=== PATIENT | male | born 1945 | race Caucasian/White ===

== ENCOUNTER → 2019-02-18 | Outpatient (CLI) | payer MEDICARE, SELFPAY ==
[2019-02-18 15:42] VITALS: BMI 37.5
[2019-02-18 17:09] LABS: International Normalized Ratio 2.9; Prothrombin Time (Protime)PT. 30.8 SECONDS (11.7-14.9)
== END | disposition home or self-care (01) ==
PROVIDERS: Family Provider Family Medicine; PCP Family Medicine; Referring Provider Internal Medicine Cardiovascular Disease; Visit Provider Internal Medicine Cardiovascular Disease
DX: I25.10 Atherosclerotic heart disease of native coronary artery without angina pectoris (principal)
CPT/HCPCS: 36415; 85610

== ENCOUNTER → 2019-04-28 | Outpatient (CLI) | payer MEDICARE, SELFPAY ==
[2019-02-18 15:42] VITALS: BMI 37.5
[2019-04-28 17:23] LABS: Prothrombin Time (Protime)PT. 38.1 SECONDS (11.7-14.9)
[2019-04-28 17:35] LABS: International Normalized Ratio 3.8
== END | disposition home or self-care (01) ==
LOC: BFHLAB 16:13
PROVIDERS: Family Provider Family Medicine; PCP Family Medicine; Visit Provider Internal Medicine Cardiovascular Disease
DX: I48.19 Other persistent atrial fibrillation (principal); Z79.01 Long term (current) use of anticoagulants
CPT/HCPCS: 36415; 85610

== ENCOUNTER 2019-05-16 15:46 | Outpatient (RCR) | payer MEDICARE, SELFPAY ==
[2019-02-18 15:42] VITALS: BMI 37.5
[2019-05-16 18:19] LABS: International Normalized Ratio 3.3; Prothrombin Time (Protime)PT. 33.6 SECONDS (11.7-14.9)
== END 2019-05-16 18:00 | disposition home or self-care (01) ==
LOC: LAB 15:46
PROVIDERS: Family Provider Family Medicine; PCP Family Medicine; Referring Provider Internal Medicine Cardiovascular Disease; Visit Provider Internal Medicine Cardiovascular Disease
DX: I48.11 Longstanding persistent atrial fibrillation (principal)
CPT/HCPCS: 36415; 85610

== ENCOUNTER 2020-07-06 20:21 | Inpatient (IN) | payer MEDICARE, SELFPAY ==
[2020-02-22 16:18] VITALS: BMI 39.3
[2020-07-06 20:22] VITALS: BP 150/98; PULSE 135; RESP 28; TEMP 36.8; O2SAT 88; BMI 40.4
--- NOTE | 2020-07-06 20:43 | RAD_ITS ---
HISTORY: cough, worsening dyspnea, chest discomfort EXAM: XR Chest 1 View: COMPARISON: August 21, 2016 FINDINGS: # of images incl. paperwork: 1 Multilobar airspace disease is more severe than the previous study or new. Filled left chest wall single-lead cardiac pacer persists Heart is not enlarged. Scoliosis with degenerative disc disease persists Pulmonary vascularity is indistinct. No effusions. RAD/Chest 1 View (Portable) IMPRESSION: Multifocal bilateral airspace disease right greater than left with right pleural thickening consistent with pneumonia. at 2210 Reported and signed by: Jac Leach MD Electronically Signed: aJc Leach MD at 22:09 EST Tel , Service support ,
--- NOTE | 2020-07-06 20:43 | EKG12_ITS ---
Test Reason : SOB Blood Pressure : / mmHG Vent. Rate : 137 BPM Atrial Rate : 127 BPM P-R Int : 000 ms QRS Dur : 076 ms QT Int : 242 ms P-R-T Axes : 000 021 013 degrees QTc Int : 365 ms Atrial fibrillation Low voltage QRS Abnormal ECG Confirmed by PATTI BRYANT, CHAR ([id number]), publications editor BONG DELGADO ([id number]) on 07/09/2020 9:43:47 AM Referred By: Concepcion Delgado Confirmed By:CHAR ARMSTRONG MD
--- NOTE | 2020-07-06 20:44 | ED.DCSUM_ITS ---
- ER Visit Summary Date of Service: 07/06/20 Chief Complaint: Shortness of breath History of Present Illness: The patient is a [address] Blanchard. He reports that his tested positive for COVID-19 and he is waiting on his test. States that he has had shortness of breath has been gradually worsening for the past week and is much worse today. He has a cough is productive very little sputum. He states he had a fever to 102.6 degrees and chills. He has chest pain that began yesterday. Symptomatic intermittent pain last approximately 30 seconds at a time. He has 5 out of 10 at worst and is pain- free currently. Is increased with exertion and decreased with rest. Patient reports that he has been on dexamethasone and has 1 day left of this. Physical Examination: Vitals: 98.3, 150/98, 135, 28, 88% on room air which is hypoxic. General: Well-nourished and well-developed. Head: Normocephalic atraumatic. Neck: Supple, no lymphadenopathy. No JVD. Nontender. Cardiovascular: Tachycardic regular rhythm. No murmurs. Respiratory: Mild respiratory distress. Clear to auscultation bilaterally. Abdominal: Soft, nontender, nondistended, normal bowel sounds. No guarding, rebound, or peritoneal signs. Back: Nontender. Extremities: Nontender, no edema. Skin: Normal color, no rash. Neurologic: Alert and oriented ?3. Cranial nerves II through XII are intact. Normal strength and sensation. Psych: Normal affect. Test Results: EKG is A. fib at [address] changes. CBC shows 7 neutrophils 89 lymphocytes 2. Chem-7 shows a BUN of 31, glucose 155, calcium of 8.2. LFTs show an albumin of 2.9. INR is 2.6. PTT is 27.8. Troponin is negative. D-dimer is 0.58 (negative when adjusted for age). CRP is 80.1. LDH is 242. Lactic acid is 1.5. Fibrinogen is 713. Chest x-ray is consistent with Covid. Clinical Impression(s) from Imaging Studies Chest X-Ray 07/06/20 20:43 IMPRESSION: Multifocal bilateral airspace disease right greater than left with right pleural thickening consistent with pneumonia. at 2210 Reported and signed by: Jac Leach MD Electronically Signed: Jac Leach MD at 22:09 EST Tel , Service support , Emergency Department Course and Treatment: Patient had an IV placed. Is given a 500 cc bolus of normal saline. He is given 20 mg of Cardizem IV. His heart rate has decreased to low 100s. The x-ray was read by the radiologist as pneumonia. His COVID-19 test was negative. In my opinion this is a false negative. However, the patient was given Rocephin and Zithromax IV. Treatment Plan: Patient was discussed with Dr. Delgado. He will be admitted to the hospital for further evaluation and treatment. Disposition: Admitted in improved condition. Impression: 1. Atrial fibrillation with RVR. 2. Hypoxia. 3. COVID-19 infection. 4. Coumadin coagulopathy. This note was generated with [employer] dictation software. It may contain incorrect words, spelling, and punctuation that were not noted in review of the chart prior to signing ED Disposition - Plan for ED Patient: Referrals: Rafiq Blanchard DO [Primary Care Provider] -
[2020-07-06 21:07] VITALS: O2SAT 88
[2020-07-06 21:14] LABS: Absolute Neutrophil Count 8.4 X10^3/uL (2.0-7.7); Basophil# 0.02 X10^3/uL; Basophil% 0.2 % (0-1); Eosinophil# 0.01 X10^3/uL; Eosinophils% 0.1 % (0-5); Hematocrit 40.8 % (40-54); Hemoglobin 13.2 g/dL (13.0-16.5); Lymphocyte % 2.1 % (19-41); Mean Corp Hgb Conc 32.4 g/dL (32-36); Mean Corpuscular Hgb 30.2 pg (27.0-32.0); Mean Corpuscular Volume 93.4 fL (80-94); Mean Platelet Vol. 9.6 fl (6.2-12.0); Monocyte# 0.82 X10^3/uL; Monocyte% 8.7 % (0-10); NRBC Flagged by Analyzer 0 % (0-5); Neutrophil # 8.37 X10^3/uL (2.7-7.7); Neutrophil % 88.5 % (47-70); POSITIVE DIFFERENTIAL YES; Platelet Count 216 K/mm3 (150-450); RBC Distribution Width CV 13.2 % (11.6-14.6); RBC Distribution Width SD 45.7 fl (35.1-43.9); Red Blood Count 4.37 M/mm3 (4.6-6.2); White Blood Count 9.5 K/mm3 (4.4-11.0)
[2020-07-06] MEDS: dilTIAZem 25 MG/5 ML Vial 20 MG IV BOLUS (21:14)
[2020-07-06 21:15] LABS: Differential Indicated SCAN CRITERIA MET
[2020-07-06 21:34] LABS: Lactic Acid 1.5 mmol/L (0.4-1.9)
[2020-07-06 21:38] LABS: ALB/GLOB Ratio 0.8 RATIO (0.9-2.4); AST(SGOT) 19 U/L (15-37); Alanine Aminotransfer ALT/SGPT 33 U/L (16-61); Albumin, Serum 2.9 g/dL (3.2-5.0); Alkaline Phosphatase 103 U/L (45-117); Anion Gap 4 (5-15); BUN 31 mg/dL (7-18); BUN/Creat Ratio 34.1 RATIO (10-20); CPK Total, Creatine Kinase 87 U/L (39-308); Calcium,Total 8.2 mg/dL (8.5-10.1); Chloride 105 mmol/L (98-107); Creatinine, Serum 0.91 mg/dL (0.70-1.30); EST Glomerular Filtration Rate 87 mL/min (>60); Est Glom Filt Rate - Afr Amer 105 mL/min (>60); Estimated Creatinine Clearance 70.99 ml/min; Globulin 3.6 g/dL (2.2-4.2); Glucose 155 mg/dL (74-106); LDH 242 U/L (87-241); Protein, Total 6.5 g/dL (6.4-8.2); Sodium Level 139 mmol/L (136-145)
[2020-07-06 21:40] LABS: Procalcitonin 0.27 ng/mL (0.00-0.09)
[2020-07-06 21:41] VITALS: BP 110/65; PULSE 104; RESP 28; O2SAT 96
[2020-07-06 21:41] LABS: Fibrinogen 713 mg/dl (203-444); International Normalized Ratio 2.6; Prothrombin Time (Protime)PT. 27.8 SECONDS (11.7-14.9)
[2020-07-06 21:43] LABS: Differential Comment SCANNED
[2020-07-06 21:47] LABS: D-Dimer Quantitative (DVT/PE) 0.58 FEU/ug/m (0.27-0.49)
[2020-07-06 22:09] VITALS: BP 116/68; PULSE 107; RESP 20; O2SAT 96
[2020-07-06] MEDS: Ceftriaxone 1 GM/50 ML BAG IV (22:53)
[2020-07-06 22:55] VITALS: BP 123/85; PULSE 116; RESP 28; TEMP 36.2; O2SAT 96
--- NOTE | 2020-07-06 22:57 | HP.PCM_ITS ---
Problem List (1) Essential hypertension Status: Chronic (2) Atherosclerotic heart disease of [place] coronary artery without angina pectoris Status: Chronic Qualifiers: [place] vs. transplanted heart: [place] heart Qualified Code(s): I25.10 - Atherosclerotic heart disease of [place] coronary artery without angina pectoris Comment: MILD (3) Paroxysmal ventricular tachycardia Status: Acute (4) Persistent atrial fibrillation Status: Chronic (5) detention (current) use of anticoagulants Status: Acute (6) COPD (chronic obstructive pulmonary disease) Status: Chronic Qualifiers: COPD type: unspecified COPD Qualified Code(s): J44.9 - Chronic obstructive pulmonary disease, unspecified (7) HLD (hyperlipidemia) Status: Chronic Qualifiers: Hyperlipidemia type: unspecified Qualified Code(s): E78.5 - Hyperlipidemia, unspecified History of Present Illness Date of Admission: 07/06/20 Chief Complaint: Fever, SOB - Thursday The patient is a 74 year old M has medical history of chronic atrial fibrillation, on Coumadin, status post pacemaker, hypertension, hyperlipidemia who comes in with complaints of shortness of breath, and fever. His tested positive for COVID-19 couple of weeks ago. He started having loss of smell loss of teeth that started 2 days prior to admission. He has been having progressive shortness of breath, fevers, chest pain. He stated a T-max of 102.6F as well as chills. His chest pain is worse with exertion, improved with rest. He was started on methylprednisolone by his primary care doctor. Vitals show temperature of 98.3F, heart rate 135, blood pressure 150/98, respi ratory 22, SPO2 was 88% on room air, and improved to 96% on 2 to 3 L of oxygen. His admitting blood work showed a BC count of 9.5, hemoglobin 13.2, platelet count 216, lymphopenia is present. INR 2.6, fibrinogen 713, D-dimer 0.58, BMP was unremarkable, lactic acid 1.5, LFTs unremarkable. LDH 242, troponin is negative, CRP 80.1, procalcitonin 0.27 Past Medical History Past Medical History (Chronic Problems): Chronic Problems (Last Reviewed 02/22/20 @ 16:19 by Jamilah Rice) Essential hypertension (Chronic) Atherosclerotic heart disease of [place] coronary artery without angina pectoris (Chronic) MILD Persistent atrial fibrillation (Chronic) Cardiac pacemaker in situ (Chronic ~01/2009) COPD (chronic obstructive pulmonary disease) (Chronic) Type 2 diabetes mellitus (Chronic) HLD (hyperlipidemia) (Chronic) Medical History: Medical History (Last Reviewed 02/22/20 @ 16:19 by Jamilah Rice) Essential hypertension (Chronic) I10 Sinus pause (Acute) I45.5 Atherosclerotic heart disease of [place] coronary artery without angina pectoris (Chronic) I25.10 MILD Paroxysmal ventricular tachycardia (Acute) I47.2 Persistent atrial fibrillation (Chronic) I48.1 Syncope and collapse (Acute) R55 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 (Acute) Z79.01 COPD (chronic obstructive pulmonary disease) (Chronic) J44.9 Type 2 diabetes mellitus (Chronic) E11.9 HLD (hyperlipidemia) (Chronic) E78.5 BPH (benign prostatic hyperplasia) N40.0 Emphysema of lung J43.9 History of cardioversion Z98.890 X 2 KATHARINA (obstructive sleep apnea) G47.33 Allergies atorvastatin [From Lipitor] Adverse Reaction (Severe, Verified 07/06/20 20:24) myalgia Home Medications: Ambulatory Orders Medication Instructions Recorded Pravastatin [Pravachol] 20 mg PO QHS 08/21/16 Warfarin Sodium [Coumadin] 9 mg PO DAILY 08/21/16 metoprolol succinate 100 mg 100 mg PO BID #180 tab 08/15/19 tablet,extended release 24 hr furosemide 20 mg tablet 20 mg PO DAILY PRN #30 tab 02/22/20 terazosin 10 mg capsule 10 mg PO BID #60 cap 06/07/20 amlodipine 2.5 mg tablet 2.5 mg PO DAILY #30 tab 06/26/20 Surgical History: Surgical History (Last Reviewed 02/22/20 @ 16:19 by Jamilah Rice) Cardiac pacemaker in situ (Chronic) Onset Date: ~01/2009 Z95.0 History of carpal tunnel surgery Z98.890 S/P right inguinal hernia repair Z98.890, Z87.19 07/17/2017 Surgical History: herniorrhaphy - Right inguinal, pacemaker implantation, - - This post carpal tunnel syndrome Psychiatric History: No pertinent psych hx Lives: Spouse/ Significant Other Smoking Status: Never smoker Tobacco Use: Non-smoker Alcohol: None Drugs: None - *Family History Maternal Family History: Family History (Last Reviewed 02/22/20 @ 16:19 by Jamilah Rice) Mother Diabetes Hypertension Father Colon cancer History Items: Diabetes, - - chf Paternal Family History: Family History (Last Reviewed 02/22/20 @ 16:19 by Jamilah Rice) Mother Diabetes Hypertension Father Colon cancer History Items: - - colon cancer Review of Systems Constitutional: Reports: Anorexia, Chills, Fever, Malaise, Weakness, Fatigue. Denies: Weight Change Eyes: Denies: Blurred vision, Cataracts, Conjunctivae Inflammation, Pain, Redness, Vision Change HEENT: Denies: Difficulty Hearing, Difficulty Swallowing, Head Aches, Hearing Changes, Sinus Congestion, Sinus Drainage Cardiovascular: Denies: Chest Pain, Claudication, Orthopnea, Palpitations Respiratory: Reports: Cough, Shortness of Breath, Shortness of breath at rest, Shortness of breath upon exertion, Sputum production. Denies: Hemoptysis Gastrointestinal: Denies: Abdominal Pain, Constipation, Hematemesis, Hematochezia, Nausea, Vomiting Genitourinary: Denies: Dysuria, Frequency, Incontinence, Nocturia Musculoskeletal: Denies: Arm Pain, Back Pain, Foot Pain, Joint Pain, Joint stiffness, Joint swelling, Joint Tenderness Skin: Denies: Rash, Wounds Neurological: Denies: Difficulty swallowing, Focal weakness, Numbness, Tingling Psychiatric: Denies: Anxiety, Depression, Homicidal Ideations, Suicidal Ideations Hematologic/ Lymphatic: Denies: Easy Bruising, Easy Bleeding VTE Information - Inpt Only VTE Present on Admission: No VTE Pharm Prophylaxis ordered?: Yes Patient Problems: Active and Suspected Problems (Last Reviewed 02/22/20 @ 16:19 by Jamilah Rice) Paroxysmal ventricular tachycardia (Acute) 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 (Acute) - Physical Exam Vitals/I&O's: Vital Signs Temp Pulse Resp BP Pulse Ox 98.3 F 107 H 20 H 116/68 96 07/06/20 20:22 07/06/20 22:09 07/06/20 22:09 07/06/20 22:09 07/06/20 22:09 Oxygen Flow Rate (L/min) 2 Oxygen Delivery Method Nasal Cannula Weight: 120.5 kg Body Mass Index (BMI) 40.4 Intake and Output for Last 24 Hours 07/04/20 07/05/20 07/06/20 23:59 23:59 23:59 Intake Total 500 / 500 Balance 500 / 500 General: Alert, Oriented x3, Cooperative, No apparent distress, - - 2 L of oxygen, obese HEENT: Atraumatic, PERRLA, EOMI, Normocephalic Oral: Moist Mucosa Neck: Supple Lungs: Diminished Cardiovascular: Regular rate, Regular Rhythm, Normal S1, Normal S2, No murmurs Abdomen: Bowel Sounds Present, Soft, Non Tender, Non-Distended, No Hepato- splenomegaly Extremities: No edema Skin: No rashes Musculoskeletal: No Tenderness to Palpation of Joints or Extremities Lymphatic: No Cervical, Supraclavicular, or Inguinal Adenopathy Neurological: Cranial nerves II-XII grossly intact, Neuro grossly intact Psych/Mental Status: Normal Affect, Appropriate Microbiology Past 72 Hours 07/06/20 21:00 Mucosa - Nose SARS-CoV-2 Antigen (Rapid) - Final Laboratory Results 07/06/20 21:00: WBC 9.5, RBC 4.37 L, Hgb 13.2, Hct 40.8, MCV 93.4, MCH 30.2, MCHC 32.4, RDW Std Deviation 45.7 H, RDW Coeff of [place] 13.2, Plt Count 216, MPV 9.6, Immature Gran % (Auto) 0.400, Neut % (Auto) 88.5 H, Lymph % (Auto) 2.1 L, [place] % (Auto) 8.7, Eos % (Auto) 0.1, Baso % (Auto) 0.2, Absolute Neuts (auto) 8.4 H, Absolute Lymphs (auto) 0.20 L, Nucleated RBC % 0, Differential Comment SCANNED 07/06/20 21:00: PT 27.8 H, INR 2.6, Fibrinogen 713 H, D-Dimer Quant (PE/DVT) 0.58 H* 07/06/20 21:00: Sodium 139, Potassium 4.0, Chloride 105, Carbon Dioxide 30.0, Anion Gap 4 L, BUN 31 H, Creatinine 0.91, Estim Creat Clear Calc 70.99, Est GFR (MDRD) Af Amer 105, Est GFR (MDRD) Non-Af 87, BUN/Creatinine Ratio 34.1 H, Glucose 155 H, Calcium 8.2 L, Total Bilirubin 0.70, AST 19, ALT 33, Alkaline Phosphatase 103, Lactate Dehydrogenase 242 H, Total Creatine Kinase 87, Troponin I < 0.015, C-React Prot Ext Range 80.10 H, Total Protein 6.5, Albumin 2.9 L, Globulin 3.6, Albumin/Globulin Ratio 0.8 L 07/06/20 21:00: Lactic Acid 1.5 07/06/20 21:00: Procalcitonin 0.27 H Current Medications Azithromycin 500 mg/ Dextrose 255 mls @ 250 mls/hr IV X1 ONE Stop: 07/06/20 23:39 Ceftriaxone Sodium (Rocephin) 1 gm in 50 mls @ 100 mls/hr IV X1 ONE Stop: 07/06/20 23:07 Last Admin: 07/06/20 22:53 Dose: 100 mls/hr Documented by: Assessment/Plan All Active Problems (Last Reviewed 02/22/20 @ 16:19 by Jamilah Rice) Sinus pause (Acute) Paroxysmal ventricular tachycardia (Acute) Syncope and collapse (Acute) 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 Acute hypoxic respiratory insufficiency secondary to acute COVID-19 pneumonia Admitting SPO2 was 88% on room air, improved to 96% on 2 L Continue with breathing treatments, po steroids, encourage use of incentive spirometer. Wean off oxygen for SPO2 more than 94% 2. Acute COVID-19 pneumonia with hypoxia Continue on Decadron, start remdesivir, ID consult 3. A. fib with RVR, patient with chronic atrial fibrillation INR is therapeutic at 2.6 Continue on Cardizem drip, warfarin, resume home metoprolol Cardiology consult 4. Status post pacemaker/hypertension/hyperlipidemia all remain stable Continue on pravastatin, Lasix, Terazosin 5. DVT prophylaxis?on warfarin 6. CODE STATUS: DNR CCA I discussed and explained in details the various types of CODE STATUS-full code, DNR CCA, DNR CC. Patient chose DNR CCA. He does not want to be aggressively resuscitated in the event of a cardiopulmonary arrest. Time spent discussing CODE STATUS 18 minutes Inpatient E&M: 20578 Init Hosp L3 Procedures: 50836 Advncd Care Plan 30 Min
[2020-07-06] MEDS: dilTIAZem 25 MG/5 ML Vial IV BOLUS (23:29)
[2020-07-06 23:41] VITALS: BP 122/77; PULSE 89; RESP 28; O2SAT 93
[2020-07-07] VITALS (42 sets, daily range): BP systolic 99–150; BP diastolic 61–89; PULSE 73–115; RESP 18–30; TEMP 36.6–37.8; O2SAT 90–97; BMI 39.6; BMI 39.7
--- NOTE | 2020-07-07 01:47 | ED.RN ---
this nurse called pt's and informed her of pt's room 215 and phone number to unit.
[2020-07-07] MEDS: 0.9% Normal Saline 1,000 ML 75 ML IV (02:18)
[2020-07-07 02:23] LABS: BNP,B-Type NATRIURETIC PEPTIDE 93.4 pg/mL (0-100)
[2020-07-07] MEDS: 0.9% Saline Lock 10 ML Syringe IV ×2 (05:45→11:07)
[2020-07-07 05:47] LABS: Absolute Lymphocyte Count 0.47 X10^3/uL (0.83-4.51); Absolute Neutrophil Count 9.8 X10^3/uL (2.0-7.7); Basophil# 0.02 X10^3/uL; Basophil% 0.2 % (0-1); Hematocrit 38.8 % (40-54); Hemoglobin 12.3 g/dL (13.0-16.5); Lymphocyte # 0.47 X10^3/ul (4.0); Lymphocyte % 4.2 % (19-41); Mean Corp Hgb Conc 31.7 g/dL (32-36); Mean Corpuscular Hgb 29.9 pg (27.0-32.0); Mean Corpuscular Volume 94.4 fL (80-94); Monocyte# 0.84 X10^3/uL; Monocyte% 7.5 % (0-10); NRBC Flagged by Analyzer 0 % (0-5); Neutrophil # 9.79 X10^3/uL (2.7-7.7); Neutrophil % 87.7 % (47-70); POSITIVE DIFFERENTIAL YES; Platelet Count 214 K/mm3 (150-450); RBC Distribution Width CV 13.4 % (11.6-14.6); RBC Distribution Width SD 46.5 fl (35.1-43.9); Red Blood Count 4.11 M/mm3 (4.6-6.2); White Blood Count 11.2 K/mm3 (4.4-11.0)
[2020-07-07 05:59] LABS: Differential Indicated SCAN CRITERIA MET
[2020-07-07 06:15] LABS: International Normalized Ratio 2.7; Prothrombin Time (Protime)PT. 27.9 SECONDS (11.7-14.9)
[2020-07-07 06:21] LABS: Differential Comment SCANNED
[2020-07-07] MEDS: INHALER, ASSIST DEVICES 1 EACH SPACER INHALATION (06:47)
[2020-07-07 07:06] LABS: ALB/GLOB Ratio 0.8 RATIO (0.9-2.4); AST(SGOT) 18 U/L (15-37); Alanine Aminotransfer ALT/SGPT 28 U/L (16-61); Albumin, Serum 2.6 g/dL (3.2-5.0); Alkaline Phosphatase 91 U/L (45-117); Anion Gap 4 (5-15); BUN 34 mg/dL (7-18); BUN/Creat Ratio 42.9 RATIO (10-20); Calcium,Total 7.7 mg/dL (8.5-10.1); Chloride 105 mmol/L (98-107); Creatinine, Serum 0.79 mg/dL (0.70-1.30); EST Glomerular Filtration Rate 102 mL/min (>60); Est Glom Filt Rate - Afr Amer 123 mL/min (>60); Globulin 3.4 g/dL (2.2-4.2); Glucose 110 mg/dL (74-106); Potassium 4.1 mmol/L (3.5-5.1); Sodium Level 139 mmol/L (136-145)
[2020-07-07] MEDS: dexAMETHasone 2 MG TABLET 6 MG PO (08:19)
[2020-07-07] MEDS: Doxazosin 4 MG Tablet 8 MG PO ×2 (08:19→21:41)
[2020-07-07] MEDS: amLODIPine 2.5 MG Tablet PO (08:20)
[2020-07-07] MEDS: Metoprolol(XL)Succ 100 MG Tablet PO ×2 (08:20→21:40)
[2020-07-07 11:12] LABS: T4 Free Direct 1.22 ng/dL (0.76-1.46)
[2020-07-07] MEDS: Digoxin 250 MCG/ML Ampul 500 MCG IV (11:16)
--- NOTE | 2020-07-07 11:49 | PCM.CONS.C ---
Problem List (1) Chronic atrial fibrillation with rapid ventricular response Status: Chronic Reason for Consult Date of Consultation: 07/07/20 History of Present Illness: The patient is a 74 year old M was admitted for shortness of breath. Patient has been having symptoms of shortness of breath for about a week. He was admitted because of that and also because of atrial fibrillation with fast ventricular rate. Patient has been treated for chronic atrial fibrillation for a long time on Coumadin. He Markie Vascor is 3. He is known to have hypertension, diabetes and hyperlipidemia. He had failed cardioversion. 7 years ago, because of syncopal episode and bradycardia he had a pacemaker put in. There was questionable history of paroxysmal ventricular tachycardia. He denies any history of myocardial infarct, chest pain or CVA. He cannot tolerate Lipitor because of muscle ache, however patient has been taking pravastatin with no difficulty. In a good day, patient can do anything he wants to do at his leisure pace with no difficulty. He is a non-smoker and nondrinker. [] Past Medical History Allergies/Adverse Reactions: Allergies atorvastatin [From Lipitor] Adverse Reaction (Severe, Verified 07/06/20 20:24) myalgia Home Medications: Ambulatory Orders Medication Instructions Recorded Pravastatin [Pravachol] 20 mg PO QHS 08/21/16 Warfarin Sodium [Coumadin] 9 mg PO DAILY 08/21/16 metoprolol succinate 100 mg 100 mg PO BID #180 tab 08/15/19 tablet,extended release 24 hr furosemide 20 mg tablet 20 mg PO DAILY PRN #30 tab 02/22/20 terazosin 10 mg capsule 10 mg PO BID #60 cap 06/07/20 amlodipine 2.5 mg tablet 2.5 mg PO DAILY #30 tab 06/26/20 Past Medical History (Chronic Problems): Chronic Problems (Last Reviewed 02/22/20 @ 16:19 by Jamilah Rice) Chronic atrial fibrillation with rapid ventricular response (Chronic) Essential hypertension (Chronic) Atherosclerotic heart disease of [place] coronary artery without angina pectoris (Chronic) MILD Persistent atrial fibrillation (Chronic) Cardiac pacemaker in situ (Chronic ~01/2009) COPD (chronic obstructive pulmonary disease) (Chronic) Type 2 diabetes mellitus (Chronic) HLD (hyperlipidemia) (Chronic) Surgical History: herniorrhaphy - Right inguinal, pacemaker implantation, - - This post carpal tunnel syndrome Psychiatric History: No pertinent psych hx - *Family History Maternal Family History: Family History (Last Reviewed 02/22/20 @ 16:19 by Jamilah Rice) Mother Diabetes Hypertension Father Colon cancer History Items: Diabetes, - - chf Paternal Family History: Family History (Last Reviewed 02/22/20 @ 16:19 by Jamilah Rice) Mother Diabetes Hypertension Father Colon cancer History Items: - - colon cancer Lives: Spouse/ Significant Other Smoking Status: Never smoker Tobacco Use: Non-smoker Alcohol: None Drugs: None Review of Systems - Review of Systems General: Reports: Fatigue HEENT: Denies: Vision Change, Blurred Vision Cardiovascular: Reports: Shortness of Breath, Palpitations. Denies: Chest Discomfort Respiratory: Reports: Shortness of Breath Gastrointestinal: Denies: Hematemesis, Hematochezia, Melena Genitourinary: Denies: Dysuria, Hematuria Muscoloskeletal: Reports: Muscle Weakness. Denies: Myalgias Neurological: Denies: Dizziness, Vertigo Psychiatric: Denies: Anxiety Objective: Vital Signs Temp Pulse Resp BP Pulse Ox 100.1 F H 112 H 18 125/84 H 91 07/07/20 10:00 07/07/20 11:16 07/07/20 10:00 07/07/20 11:16 07/07/20 10:45 Oxygen Flow Rate (L/min) 2 Oxygen Delivery Method Nasal Cannula Weight: 261 lb 14.546 oz Body Mass Index (BMI) 39.6 Intake and Output for Last 24 Hours 07/05/20 07/06/20 07/07/20 23:59 23:59 23:59 Intake Total 550 / 550 1213.50 / 1213.50 Output Total 250 / 250 Balance 550 / 550 963.50 / 963.50 General: Healthy Appearing, Awake, Alert, Oriented x 3, Cooperative, No Acute Distress HEENT: Atraumatic Cardiovascular: Irregular Rhythm - The viewed of the telemetry show patient heart rate between 101 120/min Psych/Mental Status: Appropriate, Normal Affect 07/06/20 21:00: WBC 9.5, RBC 4.37 L, Hgb 13.2, Hct 40.8, MCV 93.4, MCH 30.2, MCHC 32.4, Plt Count 216, MPV 9.6, Immature Gran % (Auto) 0.400, Neut % (Auto) 88.5 H, Lymph % (Auto) 2.1 L, [place] % (Auto) 8.7, Eos % (Auto) 0.1, Baso % (Auto) 0.2, Absolute Neuts (auto) 8.4 H, Nucleated RBC % 0 07/06/20 21:00: PT 27.8 H, INR 2.6, D-Dimer Quant (PE/DVT) 0.58 H* 07/06/20 21:00: Sodium 139, Potassium 4.0, Chloride 105, Carbon Dioxide 30.0, Anion Gap 4 L, BUN 31 H, Creatinine 0.91, Est GFR (MDRD) Af Amer 105, Est GFR (MDRD) Non-Af 87, BUN/Creatinine Ratio 34.1 H, Glucose 155 H, Calcium 8.2 L, Total Bilirubin 0.70, Troponin I < 0.015 07/06/20 21:00: Lactic Acid 1.5 07/07/20 02:04: B-Natriuretic Peptide 93.4 07/07/20 02:04: Troponin I < 0.015 07/07/20 05:00: PT 27.9 H, INR 2.7 07/07/20 05:00: Sodium 139, Potassium 4.1, Chloride 105, Carbon Dioxide 30.0, Anion Gap 4 L, BUN 34 H, Creatinine 0.79, Est GFR (MDRD) Af Amer 123, Est GFR (MDRD) Non-Af 102, BUN/Creatinine Ratio 42.9 H, Glucose 110 H, Calcium 7.7 L, Total Bilirubin 0.70 07/07/20 05:00: Troponin I < 0.015 07/07/20 05:18: WBC 11.2 H, RBC 4.11 L, Hgb 12.3 L, Hct 38.8 L, MCV 94.4 H, MCH 29.9, MCHC 31.7 L, Plt Count 214, MPV 10.0, Immature Gran % (Auto) 0.400, Neut % (Auto) 87.7 H, Lymph % (Auto) 4.2 L, [place] % (Auto) 7.5, Eos % (Auto) 0.0, Baso % (Auto) 0.2, Absolute Neuts (auto) 9.8 H, Nucleated RBC % 0 07/07/20 08:00: Troponin I < 0.015 Rhythm: EKG: ECHO: Stress Test: Cardiac Cath: PCI: CT Surgery: Holter monitor: EPS: PPM: CXR: Chest CT Scan: Assessment/Plan #1 chronic atrial fibrillation with fast ventricular rate. Patient has been stable for a long time according to him with ventricular rate in the 90s at home. The increase in ventricular rate is most likely secondary to Covid infection. His blood pressure has been reasonable 120 systolic range. I will try to give digoxin 0.5 mg IV to slow the ventricular rate down. Patient's is already on IV Cardizem and metoprolol by mouth. When stable patient should get repeat echocardiogram. TSH and free T4 has been ordered
--- NOTE | 2020-07-07 14:08 | CASEMGMT ---
Pt had indicated at admission that he has LW/POA forms but not able to bring in the forms at this time. EDITH Devi
--- NOTE | 2020-07-07 14:27 | CM.UR ---
Attempted to contact patient at this time time via phone to perform CM assessment. Desiree Ramires RN, CCM.
[2020-07-07] MEDS: dilTIAZem 60 MG Tablet PO (14:45)
--- NOTE | 2020-07-07 15:28 | NURSING ---
Unable to document vitals under titration on AUG. Vitals documented under vitals routine.
--- NOTE | 2020-07-07 16:54 | PCM.PROGNOTE ---
Patient Problems: Active and Suspected Problems (Last Reviewed 02/22/20 @ 16:19 by Jamilah Rice) Paroxysmal ventricular tachycardia (Acute) [facility] (current) use of anticoagulants (Acute) Subjective: Patient was seen and examined today, I talked with cardiology briefly about his care and cardiology was okay with placing him on oral Cardizem rather than a Cardizem drip. Patient has no complaints of any chest discomfort or chills or fever today. - Physical Exam Vitals/I&O's: Vital Signs Temp Pulse Resp BP Pulse Ox 98.1 F 79 20 H 126/74 H 95 07/07/20 16:05 07/07/20 16:25 07/07/20 16:05 07/07/20 16:25 07/07/20 16:25 Oxygen Flow Rate (L/min) 2 Oxygen Delivery Method Nasal Cannula Weight: 118.8 kg Body Mass Index (BMI) 39.6 Intake and Output for Last 24 Hours 07/05/20 07/06/20 07/07/20 23:59 23:59 23:59 Intake Total 550 / 550 1286.83 / 1286.83 Output Total 250 / 250 Balance 550 / 550 1036.83 / 1036.83 General: Alert, Oriented x3, Cooperative, No apparent distress, Well developed, Well nourished HEENT: Atraumatic, PERRLA, EOMI, Normocephalic Oral: Moist Mucosa Neck: Supple, No JVD, Trachea Midline, Thyroid Normal Size and Texture Lungs: Clear to auscultation, Normal air movement, No rhonchi, No wheeze, No rales Cardiovascular: No murmurs, PMI Normal, Irregular Rate, No rub noted Abdomen: Bowel Sounds Present, Soft, Non Tender, Non-Distended, Obese Extremities: No clubbing, No cyanosis, No edema, Capillary Refill Less than 3 Seconds Skin: No rashes, No breakdown Musculoskeletal: No Tenderness to Palpation of Joints or Extremities Neurological: Cranial nerves II-XII grossly intact, Neuro grossly intact, Sensory exam intact to light touch and pain, Coordination normal Psych/Mental Status: Normal Affect, Appropriate, Alert and oriented to time, place, person, mood and affect Microbiology Past 72 Hours 07/06/20 21:00 Mucosa - Nose SARS-CoV-2 Antigen (Rapid) - Final Laboratory Results 07/06/20 21:00: WBC 9.5, RBC 4.37 L, Hgb 13.2, Hct 40.8, MCV 93.4, MCH 30.2, MCHC 32.4, RDW Std Deviation 45.7 H, RDW Coeff of Dalila 13.2, Plt Count 216, MPV 9.6, Immature Gran % (Auto) 0.400, Neut % (Auto) 88.5 H, Lymph % (Auto) 2.1 L, Kerr % (Auto) 8.7, Eos % (Auto) 0.1, Baso % (Auto) 0.2, Absolute Neuts (auto) 8.4 H, Absolute Lymphs (auto) 0.20 L, Nucleated RBC % 0, Differential Comment SCANNED 07/06/20 21:00: PT 27.8 H, INR 2.6, Fibrinogen 713 H, D-Dimer Quant (PE/DVT) 0.58 H* 07/06/20 21:00: Sodium 139, Potassium 4.0, Chloride 105, Carbon Dioxide 30.0, Anion Gap 4 L, BUN 31 H, Creatinine 0.91, Estim Creat Clear Calc 70.99, Est GFR (MDRD) Af Amer 105, Est GFR (MDRD) Non-Af 87, BUN/Creatinine Ratio 34.1 H, Glucose 155 H, Calcium 8.2 L, Total Bilirubin 0.70, AST 19, ALT 33, Alkaline Phosphatase 103, Lactate Dehydrogenase 242 H, Total Creatine Kinase 87, Troponin I < 0.015, C-React Prot Ext Range 80.10 H, Total Protein 6.5, Albumin 2.9 L, Globulin 3.6, Albumin/Globulin Ratio 0.8 L 07/06/20 21:00: Lactic Acid 1.5 07/06/20 21:00: Procalcitonin 0.27 H 07/06/20 23:40: COVID-19 ([facility]) Detected 07/07/20 02:04: B-Natriuretic Peptide 93.4 07/07/20 02:04: Troponin I < 0.015 07/07/20 05:00: PT 27.9 H, INR 2.7 07/07/20 05:00: Sodium 139, Potassium 4.1, Chloride 105, Carbon Dioxide 30.0, Anion Gap 4 L, BUN 34 H, Creatinine 0.79, Estim Creat Clear Calc 64.60, Est GFR (MDRD) Af Amer 123, Est GFR (MDRD) Non-Af 102, BUN/Creatinine Ratio 42.9 H, Glucose 110 H, Calcium 7.7 L, Total Bilirubin 0.70, AST 18, ALT 28, Alkaline Phosphatase 91, Total Protein 6.0 L, Albumin 2.6 L, Globulin 3.4, Albumin/Globulin Ratio 0.8 L 07/07/20 05:00: Troponin I < 0.015 07/07/20 05:18: WBC 11.2 H, RBC 4.11 L, Hgb 12.3 L, Hct 38.8 L, MCV 94.4 H, MCH 29.9, MCHC 31.7 L, RDW Std Deviation 46.5 H, RDW Coeff of Dalila 13.4, Plt Count 214, MPV 10.0, Immature Gran % (Auto) 0.400, Neut % (Auto) 87.7 H, Lymph % (Auto) 4.2 L, Kerr % (Auto) 7.5, Eos % (Auto) 0.0, Baso % (Auto) 0.2, Absolute Neuts (auto) 9.8 H, Absolute Lymphs (auto) 0.47 L, Nucleated RBC % 0, Differential Comment SCANNED 07/07/20 08:00: Troponin I < 0.015 07/07/20 08:13: TSH 1.10, Free T4 1.22 Current Medications Acetaminophen (Acetaminophen 325 Mg Tablet) 650 mg PO Q6H PRN PRN PRN Reason: Pain Score 1-10/Temp > 100.7 F Al Hydroxide/Mg Hydroxide (Mag Hydrox/Al Hydrox/Simeth 30 Ml Udc) 30 ml PO Q6H PRN PRN PRN Reason: Gastric Burning Albuterol Sulfate (Albuterol Sulfate 18 Gm Inhaler (200 Puffs)) 2 puff IH Q4H PRN PRN PRN Reason: SOB &/OR WHEEZING Last Admin: 07/07/20 06:47 Dose: 2 puff Documented by: Dexamethasone (Dexamethasone 2 Mg Tablet) 6 mg PO DAILY [facility] Last Admin: 07/07/20 08:19 Dose: 6 mg Documented by: Diltiazem HCl (Diltiazem 60 Mg Tablet) 60 mg PO Q6 [facility] Last Admin: 07/07/20 14:45 Dose: 60 mg Documented by: Doxazosin Mesylate (Doxazosin 4 Mg Tablet) 8 mg PO BID [facility] Last Admin: 07/07/20 08:19 Dose: 8 mg Documented by: Furosemide (Furosemide 20 Mg Tablet) 20 mg PO DAILY PRN PRN PRN Reason: edema Remdesivir 100 mg/ Sodium (Chloride) 250 mls @ 125 mls/hr IV DAILY@2200 [facility] Stop: 07/10/20 23:59 Metoprolol Succinate (Metoprolol(Xl)Succ 100 Mg Tablet) 100 mg PO BID [facility] Last Admin: 07/07/20 08:20 Dose: 100 mg Documented by: Miscellaneous Information (Inhaler, Assist Devices 1 Each Spacer) 1 each INHALATION PRN PRN PRN Reason: WITH ALBUTEROL INHALER Last Admin: 07/07/20 06:47 Dose: 1 each Documented by: Pravastatin Sodium (Pravastatin 20 Mg Tablet) 20 mg PO QHS [facility] Sodium Chloride (0.9% Saline Lock 10 Ml Syringe) 10 - 40 ml IV UD PRN PRN Reason: SALINE FLUSH Last Admin: 07/07/20 11:07 Dose: 20 ml Documented by: Warfarin Sodium (Warfarin 3 Mg Tablet) 9 mg PO DAILY@2200 [facility] Medical Necessity - Tobacco Use Smoking Status: Never smoker Tobacco Use: Non-smoker Assessment/Plan All Active Problems (Last Reviewed 02/22/20 @ 16:19 by Jamilah Rice) Sinus pause (Acute) Paroxysmal ventricular tachycardia (Acute) Syncope and collapse (Acute) 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
[2020-07-07] MEDS: Pravastatin 20 MG Tablet PO (21:41)
[2020-07-08] VITALS (10 sets, daily range): BP systolic 124–156; BP diastolic 79–103; PULSE 70–90; RESP 18–20; TEMP 36.4–36.8; O2SAT 92–95
[2020-07-08] MEDS: dilTIAZem 60 MG Tablet PO ×3 (00:08→12:44)
[2020-07-08 07:03] LABS: International Normalized Ratio 2.9; Prothrombin Time (Protime)PT. 29.9 SECONDS (11.7-14.9)
[2020-07-08] MEDS: dexAMETHasone 2 MG TABLET 6 MG PO (08:03)
[2020-07-08] MEDS: Metoprolol(XL)Succ 100 MG Tablet PO ×2 (08:03→20:54)
[2020-07-08] MEDS: Doxazosin 4 MG Tablet 8 MG PO ×2 (08:03→20:53)
--- NOTE | 2020-07-08 11:17 | PCM.PN.CARD ---
Subjectve: He has been off IV Cardizem. Ventricular rate is reasonably controlled with p.o. Cardizem and metoprolol. INR is 2.9. Objective: Vital Signs Temp Pulse Resp BP Pulse Ox 97.6 F L 85 20 H 146/103 H 92 07/08/20 08:00 07/08/20 08:03 07/08/20 08:00 07/08/20 08:03 07/08/20 08:00 Oxygen Flow Rate (L/min) 2 Oxygen Delivery Method Nasal Cannula Weight: 260 lb 12.909 oz Body Mass Index (BMI) 39.6 Intake and Output for Last 24 Hours 07/06/20 07/07/20 07/08/20 23:59 23:59 23:59 Intake Total 550 / 550 1896.83 / 1896.83 Output Total 1075 / 1075 300 / 300 Balance 550 / 550 821.83 / 821.83 -300 / -300 General: Healthy Appearing, No Acute Distress Neck: Supple Cardiovascular: Irregular Rhythm - Review of the telemetry showed atrial fibrillation with reasonable rate Psych/Mental Status: Appropriate, Normal Affect 07/08/20 06:26: PT 29.9 H, INR 2.9 Rhythm: EKG: ECHO: Stress Test: Cardiac Cath: PCI: CT Surgery: Holter monitor: EPS: PPM: CXR: Chest CT Scan: Medical Necessity - Tobacco Use Smoking Status: Never smoker Tobacco Use: Non-smoker Assessment/Plan #1 chronic atrial fibrillation with fast ventricular rate now with better control rate. Patient has been stable for a long time according to him with ventricular rate in the 90s at home. The increase in ventricular rate is most likely secondary to Covid infection. Blood pressure still elevated probably secondary to use of steroid. Will add clonidine 0.1 mg p.o. twice daily
[2020-07-08] MEDS: cloNIDine HCl 0.1 MG Tablet PO ×2 (12:44→20:53)
--- NOTE | 2020-07-08 15:15 | PCM.PROGNOTE ---
Patient Problems: Active and Suspected Problems (Last Reviewed 02/22/20 @ 16:19 by Jamilah Rice) Paroxysmal ventricular tachycardia (Acute) intermediate (current) use of anticoagulants (Acute) Subjective: Patient was seen and examined today, he is on low-flow oxygen, his heart rate appears to be controlled-it is 90-100, I have elected to take the patient off telemetry at this time, I have converted his Cardizem to time-released Cardizem. Cardiology added on Catapres to his blood pressure medications today. Objective: General: Alert, Oriented x3, Cooperative, No apparent distress, Well developed, Well nourished HEENT: Atraumatic, PERRLA, EOMI, Normocephalic Oral: Moist Mucosa Neck: Supple, No JVD, Trachea Midline, Thyroid Normal Size and Texture Lungs: Clear to auscultation, Normal air movement, No rhonchi, No wheeze, No rales Cardiovascular: No murmurs, PMI Normal, Irregular Rate, No rub noted Abdomen: Bowel Sounds Present, Soft, Non Tender, Non-Distended, Obese Extremities: No clubbing, No cyanosis, No edema, Capillary Refill Less than 3 Seconds Skin: No rashes, No breakdown Musculoskeletal: No Tenderness to Palpation of Joints or Extremities Neurological: Cranial nerves II-XII grossly intact, Neuro grossly intact, Sensory exam intact to light touch and pain, Coordination normal Psych/Mental Status: Normal Affect, Appropriate, Alert and oriented to time, place, person, mood and affect - Physical Exam Vitals/I&O's: Vital Signs Temp Pulse Resp BP Pulse Ox 97.6 F L 90 20 H 146/103 H 92 07/08/20 08:00 07/08/20 11:00 07/08/20 08:00 07/08/20 08:03 07/08/20 08:00 Oxygen Flow Rate (L/min) 2 Oxygen Delivery Method Nasal Cannula Weight: 118.3 kg Body Mass Index (BMI) 39.6 Intake and Output for Last 24 Hours 07/06/20 07/07/20 07/08/20 23:59 23:59 23:59 Intake Total 550 / 550 1896.83 / 1896.83 360 / 360 Output Total 1075 / 1075 625 / 625 Balance 550 / 550 821.83 / 821.83 -265 / -265 Microbiology Past 72 Hours 07/06/20 21:00 Mucosa - Nose SARS-CoV-2 Antigen (Rapid) - Final Laboratory Results 07/08/20 06:26: PT 29.9 H, INR 2.9 Current Medications Acetaminophen (Acetaminophen 325 Mg Tablet) 650 mg PO Q6H PRN PRN PRN Reason: Pain Score 1-10/Temp > 100.7 F Al Hydroxide/Mg Hydroxide (Mag Hydrox/Al Hydrox/Simeth 30 Ml Udc) 30 ml PO Q6H PRN PRN PRN Reason: Gastric Burning Albuterol Sulfate (Albuterol Sulfate 18 Gm Inhaler (200 Puffs)) 2 puff IH Q4H PRN PRN PRN Reason: SOB &/OR WHEEZING Last Admin: 07/07/20 06:47 Dose: 2 puff Documented by: Clonidine (Clonidine Hcl 0.1 Mg Tablet) 0.1 mg PO BID [facility] Last Admin: 07/08/20 12:44 Dose: 0.1 mg Documented by: Dexamethasone (Dexamethasone 2 Mg Tablet) 6 mg PO DAILY [facility] Last Admin: 07/08/20 08:03 Dose: 6 mg Documented by: Diltiazem HCl (Diltiazem Cd 180 Mg Capsule) 180 mg PO Q12 [facility] Doxazosin Mesylate (Doxazosin 4 Mg Tablet) 8 mg PO BID [facility] Last Admin: 07/08/20 08:03 Dose: 8 mg Documented by: Furosemide (Furosemide 20 Mg Tablet) 20 mg PO DAILY PRN PRN PRN Reason: edema Remdesivir 100 mg/ Sodium (Chloride) 250 mls @ 125 mls/hr IV DAILY@2200 [facility] Stop: 07/10/20 23:59 Last Infusion: 07/07/20 23:41 Dose: Infused Documented by: Metoprolol Succinate (Metoprolol(Xl)Succ 100 Mg Tablet) 100 mg PO BID [facility] Last Admin: 07/08/20 08:03 Dose: 100 mg Documented by: Miscellaneous Information (Inhaler, Assist Devices 1 Each Spacer) 1 each INHALATION PRN PRN PRN Reason: WITH ALBUTEROL INHALER Last Admin: 07/07/20 06:47 Dose: 1 each Documented by: Pravastatin Sodium (Pravastatin 20 Mg Tablet) 20 mg PO QHS [facility] Last Admin: 07/07/20 21:41 Dose: 20 mg Documented by: Sodium Chloride (0.9% Saline Lock 10 Ml Syringe) 10 - 40 ml IV UD PRN PRN Reason: SALINE FLUSH Last Admin: 07/07/20 11:07 Dose: 20 ml Documented by: Warfarin Sodium (Warfarin 3 Mg Tablet) 9 mg PO DAILY@2200 [facility] Last Admin: 07/07/20 21:40 Dose: 9 mg Documented by: Medical Necessity - Tobacco Use Smoking Status: Never smoker Tobacco Use: Non-smoker Assessment/Plan All Active Problems (Last Reviewed 02/22/20 @ 16:19 by Jamilah Rice) Sinus pause (Acute) Paroxysmal ventricular tachycardia (Acute) Syncope and collapse (Acute) intermediate (current) use of anticoagulants (Acute) #1 COVID-19 pneumonia-patient will remain on remdesivir and dexamethasone #2 hypoxia secondary to #1-pulse ox will be monitored #3 chronic atrial fibrillation-I have placed the patient on Cardizem CD 181 twice a day, I have stopped his 60 mg immediate release Cardizem. #4 type 2 diabetes-blood sugars will be monitored #5 atherosclerotic heart disease #6 hyperlipidemia #7 essential hypertension #8 COPD-patient is on no home inhalers #9 obstructive sleep apnea-on CPAP Inpatient E&M: 28956 Subs Hosp L2
[2020-07-08] MEDS: dilTIAZem CD 180 MG Capsule PO (17:06)
[2020-07-08] MEDS: Pravastatin 20 MG Tablet PO (20:54)
[2020-07-09] VITALS (7 sets, daily range): BP systolic 111–162; BP diastolic 87–93; PULSE 57–91; RESP 17–20; TEMP 36.4–36.7; O2SAT 93–96
--- NOTE | 2020-07-09 04:45 | NURSING ---
0245 This RN with Silas Boone RN and Shanika Mar RN were at nurse's station when pt. came walking down the hallway fully dressed with his belongings bag. When asked what patient was doing and where he was going he responded I woke up and everything was off me so I thought my treatment was done and was D/C'd. Explained to patient we are still treating him and asked him to go back to his room and pt. complied. This RN in pt's room verified orientation and he was A&O x3. Pt. stated must have taken everything off in my sleep and said this happened before in the hospital. Placed oxygen back on patient as he was 84% on RA, obtained full set of VS, assisted with putting on gown and restarted IV. Also used albuterol inhaler for wheezes throughout. Bed alarm on and will continue to monitor.
--- NOTE | 2020-07-09 07:48 | PCM.PN.HOSP ---
Patient Problems: Active and Suspected Problems (Last Reviewed 02/22/20 @ 16:19 by Jamilah Rice) Paroxysmal ventricular tachycardia (Acute) halfway (current) use of anticoagulants (Acute) Reason for Visit: COVID-19 pneumonia Subjective: Patient is a 74-year-old gentleman admitted with shortness of breath diagnosed with acute COVID-19 pneumonia Objective: GENERAL: cooperative HEENT: Atraumatic; EYES; Anicteric, Normal Conjunctiva NECK; supple, normal thyroid, RESPIRATORY: Diminished to auscultation CARDIOVASCULAR: Irregular S1-S2 GI: soft, normoactive bowel sounds, : No Renal angle tenderness; EXTREMITIES: No edema, no clubbing, MUSCULOSKELETAL: no muscle waisting NEURO: Awake; no lateralizing signs. SKIN: No Rash PSYCH; Flat affect Vitals/I&O's: Vital Signs Temp Pulse Resp BP Pulse Ox 98.1 F 78 20 H 162/93 H 93 07/09/20 02:54 07/09/20 02:54 07/09/20 02:54 07/09/20 02:54 07/09/20 07:34 Oxygen Flow Rate (L/min) 2 Oxygen Delivery Method Nasal Cannula Weight: 117.4 kg Body Mass Index (BMI) 39.6 Intake and Output for Last 24 Hours 07/07/20 07/08/20 07/09/20 23:59 23:59 23:59 Intake Total 1896.83 / 1896.83 1090 / 1090 Output Total 1075 / 1075 1525 / 1525 350 / 350 Balance 821.83 / 821.83 -435 / -435 -350 / -350 Microbiology Past 72 Hours 07/06/20 21:20 Blood Culture (Wb) - Right Hand Blood Culture - Preliminary No growth in 48 hours. 07/06/20 21:00 Blood Culture (Wb) - Anticubital Left Blood Culture - Preliminary No growth in 48 hours. 07/09/20 05:15 Urine, Clean Catch Legionella Antigen - Final 07/09/20 05:15 Urine, Clean Catch Streptococcus pneumoniae Antigen (M - Final 07/06/20 21:00 Mucosa - Nose SARS-CoV-2 Antigen (Rapid) - Final Current Medications Acetaminophen (Acetaminophen 325 Mg Tablet) 650 mg PO Q6H PRN PRN PRN Reason: Pain Score 1-10/Temp > 100.7 F Al Hydroxide/Mg Hydroxide (Mag Hydrox/Al Hydrox/Simeth 30 Ml Udc) 30 ml PO Q6H PRN PRN PRN Reason: Gastric Burning Albuterol Sulfate (Albuterol Sulfate 18 Gm Inhaler (200 Puffs)) 2 puff IH Q4H PRN PRN PRN Reason: SOB &/OR WHEEZING Last Admin: 07/09/20 03:01 Dose: 2 puff Documented by: Clonidine (Clonidine Hcl 0.1 Mg Tablet) 0.1 mg PO BID [facility] Last Admin: 07/08/20 20:53 Dose: 0.1 mg Documented by: Dexamethasone (Dexamethasone 2 Mg Tablet) 6 mg PO DAILY [facility] Last Admin: 07/08/20 08:03 Dose: 6 mg Documented by: Diltiazem HCl (Diltiazem Cd 180 Mg Capsule) 180 mg PO Q12 [facility]PL[facility] Last Admin: 07/08/20 17:06 Dose: 180 mg Documented by: Doxazosin Mesylate (Doxazosin 4 Mg Tablet) 8 mg PO BID [facility] Last Admin: 07/08/20 20:53 Dose: 8 mg Documented by: Furosemide (Furosemide 20 Mg Tablet) 20 mg PO DAILY PRN PRN PRN Reason: edema Remdesivir 100 mg/ Sodium (Chloride) 250 mls @ 125 mls/hr IV DAILY@2200 [facility] Stop: 07/10/20 23:59 Last Infusion: 07/08/20 22:54 Dose: Infused Documented by: Metoprolol Succinate (Metoprolol(Xl)Succ 100 Mg Tablet) 100 mg PO BID [facility] Last Admin: 07/08/20 20:54 Dose: 100 mg Documented by: Miscellaneous Information (Inhaler, Assist Devices 1 Each Spacer) 1 each INHALATION PRN PRN PRN Reason: WITH ALBUTEROL INHALER Last Admin: 07/07/20 06:47 Dose: 1 each Documented by: Pravastatin Sodium (Pravastatin 20 Mg Tablet) 20 mg PO QHS [facility] Last Admin: 07/08/20 20:54 Dose: 20 mg Documented by: Sodium Chloride (0.9% Saline Lock 10 Ml Syringe) 10 - 40 ml IV UD PRN PRN Reason: SALINE FLUSH Last Admin: 07/07/20 11:07 Dose: 20 ml Documented by: Warfarin Sodium (Warfarin 3 Mg Tablet) 9 mg PO DAILY@2200 [facility] Last Admin: 07/08/20 20:55 Dose: 9 mg Documented by: STROKE Vital Signs/Narrative: Vital Signs Pulse Ox 07/09/20 07:34 93 Medical Necessity - Tobacco Use Smoking Status: Never smoker Tobacco Use: Non-smoker Assessment/Plan All Active Problems (Last Reviewed 02/22/20 @ 16:19 by Jamilah Rice) Sinus pause (Acute) Paroxysmal ventricular tachycardia (Acute) Syncope and collapse (Acute) halfway (current) use of anticoagulants (Acute) Patient is a 74-year-old gentleman admitted with shortness of breath diagnosed with acute COVID-19 pneumonia 1. Acute COVID-19 pneumonia ?Patient currently being treated with remdesivir and dexamethasone as well as supplemental oxygen 2. Acute hypoxic respiratory failure secondary to above ?Patient is on supplemental oxygen 3. Chronic A. fib ?Rate controlled on Cardizem 4. Diabetes mellitus type II -patient's oral hypoglycemics held. -Placed on long acting insulin, Accu-Cheks a.c. and at bedtime and covered with sliding scale insulin 5. Coronary artery disease ?Per history 6. Dyslipidemia -Patient is on statin therapy, continued at home dose 7. Hypertension - Blood pressure controlled, home medications continued with dose adjustment as needed 8. COPD ?Aerosol treatments as needed 9. Obstructive sleep apnea ?On CPAP at night 10. BPH ?Patient is on Terazosin at home 11. DVT prophylaxis ?On Coumadin with a therapeutic INR Advance planning; did discuss with the patient regarding advanced directives as well as CODE STATUS. Did explain the various scenarios involved ( FULL CODE, DNR CCA, DNR CCA with no intubation, and DNR CC and what each meant) patient elected full code with CPR and intubation if warranted. Order was placed. Time spent on discussion 18 minutes. Inpatient E&M: [id number] Subs Hosp L2 Procedures: 99007 Advncd Care Plan 30 Min
[2020-07-09] MEDS: dilTIAZem CD 180 MG Capsule PO ×2 (09:13→21:45)
[2020-07-09] MEDS: cloNIDine HCl 0.1 MG Tablet PO ×2 (09:14→21:33)
[2020-07-09] MEDS: Metoprolol(XL)Succ 100 MG Tablet PO ×2 (09:14→21:45)
[2020-07-09] MEDS: 0.9% Saline Lock 10 ML Syringe IV (09:14)
[2020-07-09] MEDS: Doxazosin 4 MG Tablet 8 MG PO ×2 (09:14→21:33)
[2020-07-09] MEDS: dexAMETHasone 2 MG TABLET 6 MG PO (09:14)
--- NOTE | 2020-07-09 09:44 | PCM.PN.CARD ---
Subjectve: The patient is awake and alert. He denies any ongoing sensation of rapid heart rates. There is been no issues with respect to ongoing chest discomfort. He states his breathing has improved overall. Objective: Vital Signs Temp Pulse Resp BP Pulse Ox 97.6 F L 91 20 H 137/88 H 94 07/09/20 09:00 07/09/20 09:14 07/09/20 09:00 07/09/20 09:00 07/09/20 09:00 Oxygen Flow Rate (L/min) 2 Oxygen Delivery Method Nasal Cannula Weight: 258 lb 13.163 oz Body Mass Index (BMI) 39.6 Intake and Output for Last 24 Hours 07/07/20 07/08/20 07/09/20 23:59 23:59 23:59 Intake Total 1896.83 / 1896.83 1090 / 1090 Output Total 1075 / 1075 1525 / 1525 350 / 350 Balance 821.83 / 821.83 -435 / -435 -350 / -350 General: Awake, Alert, Oriented x 3, Cooperative, No Acute Distress, Obese HEENT: Atraumatic, Normocephalic, PERRL, EOMI, Sclera Non Icteric Neck: Supple, Good ROM, No JVD Lungs: - - No obvious rales Cardiovascular: Irregular Rhythm, Normal S1, Normal S2 Abdomen: Bowel Sounds Present, Soft Extremities: No edema Neurological: No Focal Motor or Sensory Deficit Psych/Mental Status: Appropriate Rhythm: Atrial fibrillation Medical Necessity - Tobacco Use Smoking Status: Never smoker Tobacco Use: Non-smoker Assessment/Plan 1. Atrial fibrillation The patient has permanent atrial fibrillation. He remains on rate control therapy. He remains on anticoagulant therapy. At the moment he appears to be symptomatically and hemodynamically stable. Thus, at the present time, he will continue rate control therapy as deemed appropriate during the time of his COVID-19 diagnosis. He will continue his anticoagulation therapy. At the moment it does not appear he requires further cardiac diagnostic studies/therapeutic intervention. 2. Permanent pacemaker The patient has a permanent pacemaker. It has been evaluated in the past. It has been functioning appropriately. He will continue to be followed. 3. CAD The patient does not describe any ongoing symptoms related to his history of CAD. He will continue risk factor evaluation care as deemed appropriate. 4. Hyperlipidemia The patient should continue medical management as he is able. 5. Hypertension The patient's blood pressure will be followed with adjustment as needed. Overall, at the present time, the patient will continue cardiovascular medical therapy. It does not appear he requires further cardiac diagnostic studies/intervention at this time. He can be reassessed by cardiology as needed during his hospital stay. Otherwise he will continue to be followed as an outpatient. This note was generated using a voice recognition system and there may be incorrect words, spelling or punctuation that were not noted when reviewing the office note prior to saving.
--- NOTE | 2020-07-09 10:46 | CASEMGMT ---
RN CM Assessment Note Introduced role of CM to patient via phone to room, Patient is awake, alert and able to participate in assessment. Demographics, PCP verified. Patient states he is generally independent @ home, no DME and no assistance needed with ADL. Discussed oxygen testing prior to dc. requested I call his for DME company. Call to , explained possible need for home O2. did not have a preference as long as was [employer] with [employer]. Decision is for [facility] in [place]. Presentation: shortness of breath COVID-19 testin07/06/20 positive test @ [facility] - is positive for COVID-19 but recovering -daughters are bringing food/supplies to their home - and patient are aware of quarantine requirements Diagnosis: COVID-19 pneumonia PCP: Dr. Rafiq Blanchard Specialists: Dr. South Insurance: [employer] Medicare Preferred Pharmacy: [facility] Prescription Benefit: yes LNOK: Shasta Herrera Living Arrangements: Lives independently at home with his Tranportation: drives and drives DME: none. If oxygen is needed on dc, [facility] D[facility] providers for [employer] are: [facility] in [place], [place], [facility] in [place]-preferred. HHC: none SNF: none Patient DC Goals: Home DC Plan: Home. recommend home oxygen testing at rest and with ambulation on dc. CM available for discharge planning coordination. Contact CM for any concerns/needs that may arise. Yvonne GONZALEZ RN ACM
--- NOTE | 2020-07-09 15:25 | PCM.HP.ID ---
Problem List (1) COVID-19 Status: Acute Reason for Consult: covid Consulted by: Dr. Ford History of Present Illness: The patient is a 74 year old M presented with one week cough, dyspnea, change in taste/smell. 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 He saw PCP, started on steroids prior to admit for about 6 days. Came to ED, admitted on remdesivir and dex. Feeling better. Full ROS performed and neg except as noted above. 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 Persistent atrial fibrillation (Chronic) Cardiac pacemaker in situ (Chronic ~01/2009) COPD (chronic obstructive pulmonary disease) (Chronic) Type 2 diabetes mellitus (Chronic) HLD (hyperlipidemia) (Chronic) Allergies/Adverse Reactions: Allergies atorvastatin [From Lipitor] Adverse Reaction (Severe, Verified 07/06/20 20:24) myalgia Home Medications: Ambulatory Orders Medication Instructions Recorded Pravastatin [Pravachol] 20 mg PO QHS 08/21/16 Warfarin Sodium [Coumadin] 9 mg PO DAILY 08/21/16 metoprolol succinate 100 mg 100 mg PO BID #180 tab 08/15/19 tablet,extended release 24 hr furosemide 20 mg tablet 20 mg PO DAILY PRN #30 tab 02/22/20 terazosin 10 mg capsule 10 mg PO BID #60 cap 06/07/20 amlodipine 2.5 mg tablet 2.5 mg PO DAILY #30 tab 06/26/20 - Social History Tobacco Use: non-smoker Vital Signs Temp Pulse Resp BP Pulse Ox 97.7 F L 57 L 17 111/87 H 96 07/09/20 14:55 07/09/20 14:55 07/09/20 14:55 07/09/20 14:55 07/09/20 14:55 Oxygen Flow Rate (L/min) 2 Oxygen Delivery Method Nasal Cannula Weight: 117.4 kg Body Mass Index (BMI) 39.6 Microbiology Past 72 Hours 07/06/20 21:20 Blood Culture - Preliminary Blood Culture (Wb) - Right Hand No growth in 48 hours. 07/06/20 21:00 Blood Culture - Preliminary Blood Culture (Wb) - Anticubital Left No growth in 48 hours. 07/09/20 05:15 Legionella Antigen - Final Urine, Clean Catch Streptococcus pneumoniae Antigen (M - Final 07/06/20 21:00 SARS-CoV-2 Antigen (Rapid) - Final Mucosa - Nose - Other Studies Radiology: [] reviewed Other Studies: [] Route of nutrition/ use of supplements: [] Nutritional Intake: [] IV Site: [] Navas Catheter: [] - Physical Exam General: Alert, Oriented x3, Cooperative, No apparent distress HEENT: Atraumatic, PERRLA, EOMI Neck: Supple, No Nodes Lungs: Clear to auscultation, Diminished Cardiovascular: Regular rate, Regular Rhythm Abdomen: Soft, Non Tender, Non-Distended Extremities: No edema Skin: No rashes Musculoskeletal: No Tenderness to Palpation of Joints or Extremities Neurological: Cranial nerves II-XII grossly intact - Assessment/Plan Antibiotics: [] Assessment/Plan: [] Active and Suspected Problems (Last Reviewed 02/22/20 @ 16:19 by Jamilah Rice) Paroxysmal ventricular tachycardia (Acute) 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 Sx started about a week prior to admit. Feeling better. D-dimer mildly elevated at 0.6. with covid recently, recovered. Plan on 20 days total of quarantine. Thank you, will follow
--- NOTE | 2020-07-09 17:23 | PCS.PANDOC ---
PANDEMIC DOCUMENTATION INITIATED: Date: 07/07/20 Time: 0125
[2020-07-09] MEDS: Pravastatin 20 MG Tablet PO (21:33)
[2020-07-10 01:02] VITALS: BP 135/83; PULSE 85; RESP 18; TEMP 36.6; O2SAT 96
[2020-07-10 06:06] LABS: ALB/GLOB Ratio 0.8 RATIO (0.9-2.4); AST(SGOT) 17 U/L (15-37); Alanine Aminotransfer ALT/SGPT 38 U/L (16-61); Albumin, Serum 2.5 g/dL (3.2-5.0); Alkaline Phosphatase 83 U/L (45-117); Anion Gap 2 (5-15); BUN 37 mg/dL (7-18); BUN/Creat Ratio 57.5 RATIO (10-20); Calcium,Total 8.1 mg/dL (8.5-10.1); Chloride 106 mmol/L (98-107); Creatinine, Serum 0.64 mg/dL (0.70-1.30); EST Glomerular Filtration Rate 130 mL/min (>60); Est Glom Filt Rate - Afr Amer 157 mL/min (>60); Globulin 3.2 g/dL (2.2-4.2); Glucose 132 mg/dL (74-106); Potassium 4.7 mmol/L (3.5-5.1); Protein, Total 5.7 g/dL (6.4-8.2); Sodium Level 141 mmol/L (136-145)
--- NOTE | 2020-07-10 07:30 | DCINST_ITS ---
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) COPD (chronic obstructive pulmonary disease) (Chronic) HLD (hyperlipidemia) (Chronic) You will use the following diet at home:: No restrictions Your food should be the consistency of: Regular Discharge Activity: Return to Normal Activity, - - And to isolate for total of 21 days Allergies/Adverse Reactions: Allergies atorvastatin [From Lipitor] Adverse Reaction (Severe, Verified 07/06/20 20:24) myalgia Medications to take at Discharge Pravastatin [Pravachol] 20 mg PO QHS 08/21/16 Warfarin Sodium [Coumadin] 9 mg PO DAILY 08/21/16 metoprolol succinate 100 mg tablet,extended release 24 hr 100 mg PO BID #180 tab 08/15/19 furosemide 20 mg tablet 20 mg PO DAILY PRN #30 tab 02/22/20 terazosin 10 mg capsule 10 mg PO BID #60 cap 06/07/20 Acetaminophen [Tylenol Tablet] 650 mg PO Q6H PRN PRN tab 07/10/20 Dexamethasone [Decadron] 6 mg PO DAILY 6 Days #6 tab 07/10/20 Diltiazem CD [Cardizem CD] 180 mg PO Q12 #120 cap 07/10/20 The following prescriptions were given: Diltiazem CD [Cardizem CD] 180 mg PO Q12 #120 cap Transmission Status: Received by [id number] Dexamethasone [Decadron] 6 mg PO DAILY 6 Days #6 tab Transmission Status: Received by [id number] Primary Care Physician: Rafiq Blanchard DO [Primary Care Provider] - Please follow up with your Primary Care Physician in: In 3 to 4 weeks Test Results: Test results from this visit will be discussed in further detail at your follow- up appointment, if applicable. Proposed Discharge Date: 07/10/20
--- NOTE | 2020-07-10 07:30 | PCM.DC.SUM ---
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) Date of Admission: 07/06/20 Date of Discharge: 07/10/20 - Primary Discharge Diagnosis Acute Problems: Active Problems (Last Reviewed 02/22/20 @ 16:19 by Jamilah Rice) COVID-19 (Acute) Paroxysmal ventricular tachycardia (Acute) care home (current) use of anticoagulants (Acute) - Secondary Discharge Diagnosis Chronic Problems: Chronic Problems (Last Reviewed 02/22/20 @ 16:19 by Jamilah Rice) Chronic atrial fibrillation with rapid ventricular response (Chronic) Essential hypertension (Chronic) Atherosclerotic heart disease of [place] coronary artery without angina pectoris (Chronic) MILD Persistent atrial fibrillation (Chronic) Cardiac pacemaker in situ (Chronic ~01/2009) COPD (chronic obstructive pulmonary disease) (Chronic) Type 2 diabetes mellitus (Chronic) HLD (hyperlipidemia) (Chronic) Hospital Course and Treatment Imaging Results: Clinical Impression(s) from Imaging Studies Chest X-Ray 07/06/20 20:43 IMPRESSION: Multifocal bilateral airspace disease right greater than left with right pleural thickening consistent with pneumonia. at 2210 Reported and signed by: Jac Leach MD Electronically Signed: Jac Leach MD at 22:09 EST Tel , Service support , Operations: None Summary of Care Provided: Patient is a 74-year-old gentleman admitted with shortness of breath diagnosed with acute COVID-19 pneumonia 1. Acute COVID-19 pneumonia ?Patient currently being treated with remdesivir and dexamethasone as well as supplemental oxygen 2. Acute hypoxic respiratory failure secondary to above ?Patient is on supplemental oxygen -Patient was assessed for home oxygen on discharge he did qualify. He will need portability since he is active both at home as well as in the community 3. Chronic A. fib ?Rate controlled on Cardizem 4. Diabetes mellitus type II -patient's oral hypoglycemics held. -Placed on long acting insulin, Accu-Cheks a.c. and at bedtime and covered with sliding scale insulin 5. Coronary artery disease ?Per history 6. Dyslipidemia -Patient is on statin therapy, continued at home dose 7. Hypertension - Blood pressure controlled, home medications continued with dose adjustment as needed 8. COPD ?Aerosol treatments as needed 9. Obstructive sleep apnea ?On CPAP at night 10. BPH ?Patient is on Terazosin at home 11. DVT prophylaxis ?On Coumadin with a therapeutic INR Patient Problems: Active and Suspected Problems (Last Reviewed 02/22/20 @ 16:19 by Jamilah Rice) COVID-19 (Acute) Paroxysmal ventricular tachycardia (Acute) care home (current) use of anticoagulants (Acute) Objective: GENERAL: cooperative HEENT: Atraumatic; EYES; Anicteric, Normal Conjunctiva NECK; supple, normal thyroid, RESPIRATORY: Diminished to auscultation CARDIOVASCULAR: Irregular S1-S2 GI: soft, normoactive bowel sounds, : No Renal angle tenderness; EXTREMITIES: No edema, no clubbing, MUSCULOSKELETAL: no muscle waisting NEURO: Awake; no lateralizing signs. SKIN: No Rash - Physical Exam Vitals/I&O's: Vital Signs Temp Pulse Resp BP Pulse Ox 97.8 F 85 18 135/83 H 96 07/10/20 01:02 07/10/20 01:02 07/10/20 01:02 07/10/20 01:02 07/10/20 01:02 Oxygen Flow Rate (L/min) 2 Oxygen Delivery Method Nasal Cannula Weight: 118.6 kg Body Mass Index (BMI) 39.6 Intake and Output for Last 24 Hours 07/08/20 07/09/20 07/10/20 23:59 23:59 23:59 Intake Total 1090 / 1090 1140 / 1340 450 / 450 Output Total 1525 / 1525 1250 / 1650 1000 / 1000 Balance -435 / -435 -110 / -310 -550 / -550 Microbiology Past 72 Hours 07/06/20 21:20 Blood Culture (Wb) - Right Hand Blood Culture - Preliminary No growth in 48 hours. 07/06/20 21:00 Blood Culture (Wb) - Anticubital Left Blood Culture - Preliminary No growth in 48 hours. 07/09/20 05:15 Urine, Clean Catch Legionella Antigen - Final 07/09/20 05:15 Urine, Clean Catch Streptococcus pneumoniae Antigen (M - Final Laboratory Results 07/10/20 05:18: Sodium 141, Potassium 4.7, Chloride 106, Carbon Dioxide 33.0 H, Anion Gap 2 L, BUN 37 H, Creatinine 0.64 L, Estim Creat Clear Calc 64.60, Est GFR (MDRD) Af Amer 157, Est GFR (MDRD) Non-Af 130, BUN/Creatinine Ratio 57.5 H, Glucose 132 H, Calcium 8.1 L, Total Bilirubin 0.30, AST 17, ALT 38, Alkaline Phosphatase 83, Total Protein 5.7 L, Albumin 2.5 L, Globulin 3.2, Albumin/Globulin Ratio 0.8 L Current Medications Acetaminophen (Acetaminophen 325 Mg Tablet) 650 mg PO Q6H PRN PRN PRN Reason: Pain Score 1-10/Temp > 100.7 F Al Hydroxide/Mg Hydroxide (Mag Hydrox/Al Hydrox/Simeth 30 Ml Udc) 30 ml PO Q6H PRN PRN PRN Reason: Gastric Burning Albuterol Sulfate (Albuterol Sulfate 18 Gm Inhaler (200 Puffs)) 2 puff IH Q4H PRN PRN PRN Reason: SOB &/OR WHEEZING Last Admin: 07/09/20 03:01 Dose: 2 puff Documented by: Clonidine (Clonidine Hcl 0.1 Mg Tablet) 0.1 mg PO BID [facility] Last Admin: 07/09/20 21:33 Dose: 0.1 mg Documented by: Dexamethasone (Dexamethasone 2 Mg Tablet) 6 mg PO DAILY [facility] Stop: 07/16/20 10:01 Last Admin: 07/09/20 09:14 Dose: 6 mg Documented by: Diltiazem HCl (Diltiazem Cd 180 Mg Capsule) 180 mg PO Q12 [facility] Last Admin: 07/09/20 21:45 Dose: 180 mg Documented by: Doxazosin Mesylate (Doxazosin 4 Mg Tablet) 8 mg PO BID [facility] Last Admin: 07/09/20 21:33 Dose: 8 mg Documented by: Furosemide (Furosemide 20 Mg Tablet) 20 mg PO DAILY PRN PRN PRN Reason: edema Remdesivir 100 mg/ Sodium (Chloride) 250 mls @ 125 mls/hr IV DAILY@2200 [facility] Stop: 07/10/20 23:59 Last Infusion: 07/10/20 02:51 Dose: Infused Documented by: Metoprolol Succinate (Metoprolol(Xl)Succ 100 Mg Tablet) 100 mg PO BID [facility] Last Admin: 07/09/20 21:45 Dose: 100 mg Documented by: Miscellaneous Information (Inhaler, Assist Devices 1 Each Spacer) 1 each INHALATION PRN PRN PRN Reason: WITH ALBUTEROL INHALER Last Admin: 07/07/20 06:47 Dose: 1 each Documented by: Pravastatin Sodium (Pravastatin 20 Mg Tablet) 20 mg PO QHS [facility] Last Admin: 07/09/20 21:33 Dose: 20 mg Documented by: Sodium Chloride (0.9% Saline Lock 10 Ml Syringe) 10 - 40 ml IV UD PRN PRN Reason: SALINE FLUSH Last Admin: 07/09/20 09:14 Dose: 10 ml Documented by: Warfarin Sodium (Warfarin 3 Mg Tablet) 9 mg PO DAILY@2200 [facility] Last Admin: 07/09/20 21:32 Dose: 9 mg Documented by: Discharge Diet: No Restrictions Discharge Activity: Return to Normal Activity, - - And to isolate for total of 21 days Home Medications: Medications to take at Discharge Pravastatin [Pravachol] 20 mg PO QHS 08/21/16 Warfarin Sodium [Coumadin] 9 mg PO DAILY 08/21/16 metoprolol succinate 100 mg tablet,extended release 24 hr 100 mg PO BID #180 tab 08/15/19 furosemide 20 mg tablet 20 mg PO DAILY PRN #30 tab 02/22/20 terazosin 10 mg capsule 10 mg PO BID #60 cap 06/07/20 Acetaminophen [Tylenol Tablet] 650 mg PO Q6H PRN PRN tab 07/10/20 Dexamethasone [Decadron] 6 mg PO DAILY 6 Days #6 tab 07/10/20 Diltiazem CD [Cardizem CD] 180 mg PO Q12 #120 cap 07/10/20 Following Prescriptions Were Given to Patient: Diltiazem CD [Cardizem CD] 180 mg PO Q12 #120 cap Transmission Status: Received by [facility] Dexamethasone [Decadron] 6 mg PO DAILY 6 Days #6 tab Transmission Status: Received by [id number] Primary Care Physician: Rafiq Blanchard DO [Primary Care Provider] - Please follow up with your Primary Care Physician in: In 3 to 4 weeks Disposition: Home Minutes spent on discharge:: 45 Patient Condition:: Stable Medical Necessity - Tobacco Use Smoking Status: Never smoker Tobacco Use: Non-smoker Meaningful Use Info Meaningful Use Diagnoses (Choose all that apply): None applicable Inpatient E&M: 95935 Disch Hosp
[2020-07-10 09:18] VITALS: BP 137/85; PULSE 78; RESP 15; TEMP 36.6; O2SAT 2
[2020-07-10 09:21] VITALS: BP 137/85; PULSE 78
[2020-07-10] MEDS: Doxazosin 4 MG Tablet 8 MG PO (09:21)
[2020-07-10] MEDS: Metoprolol(XL)Succ 100 MG Tablet PO (09:21)
[2020-07-10] MEDS: cloNIDine HCl 0.1 MG Tablet PO (09:21)
[2020-07-10] MEDS: dilTIAZem CD 180 MG Capsule PO (09:22)
[2020-07-10] MEDS: dexAMETHasone 2 MG TABLET 6 MG PO (09:22)
[2020-07-10 09:29] VITALS: O2SAT 86; O2SAT 94; O2SAT 95
--- NOTE | 2020-07-10 11:07 | CASEMGMT ---
RN CM Note: pt did qualify for home oxygen. script signed by physician and clinicals faxed to [facility] @ . PH: . Call to [facility] to update on referral. They do not have a time for portability delivery. Yvonne SÁNCHEZN RN ACM
[2020-07-10 14:00] VITALS: BP 142/82; PULSE 88; RESP 17; TEMP 36.9; O2SAT 93
--- NOTE | 2020-07-10 14:22 | CHAPLAIN ---
Type of Pastoral Visit ___ Initial Visit ___ Follow-up Visit ___ On-call Visit ___ General Patient Visit ___ Spiritual Assessment ___ Family Conference ___ Bereavement ___ Rapid Response ___ Code Blue _x__ Other (describe below) Pastoral Care Referral From ___ Patient ___ Family ___ Nurse ___ Physician ___ Tawer ___ [employer] [place] Business Analyst _x__ Other (describe below) Sacrament/Intervention _x__ Active listening ___ Anointing ___ Rastafari ___ Bereavement ___ Communion ___ Neli exploration ___ ___ Life review ___ Prayer ___ Reconciliation ___ Sacrament of Sick ___ Supportive presence ___ Wedding ___ Other (describe below) Pastoral Comments patient answers phone call into isolation room; pt states he is doing well and is being discharged today; pt said no concerns and that all has gone well for him here
[2020-07-10 15:09] VITALS: O2SAT 93
--- NOTE | 2020-07-12 09:29 | CASEMGMT ---
SALOMON ASENCIO Discharge Follow-up Phone Call: JOSE ENRIQUE: Richelle Strata: 3 Call Date: 07/12/2020 Discharge Date: 07/10/2020 Time of Call: 919 Admitting Diagnosis: COVID pneumonia Discharge follow-up call placed to pt. Pt states he has been doing well and states it is just going to take time. Pt states he is wearing his O2, denies any difficulty with breathing. States he does not have a pulse ox to monitor his oxygen levels. Pt states he has been in contact with his PCP's office and has an appointment scheduled for follow-up. Pt states he has been able to isolate and his and two daughters provide him with what he needs. Pt states he did receive his medications and has been taking them as directed. Pt denies any questions or concerns at this time. Deisi Mcmillan RN CM
== END 2020-07-10 15:40 | disposition home or self-care (01) | DRG 177 ==
LOC: ED 21:08 → MS2 23:05
PROVIDERS: Internal Medicine Cardiovascular Disease; Internal Medicine Infectious Disease; Admitting Provider Internal Medicine; Emergency Provider Emergency Medicine; PCP Family Medicine; Referring Provider Internal Medicine; Visit Provider Internal Medicine
DX: U07.1 COVID-19 (principal); J12.82 Pneumonia due to coronavirus disease 2019; J96.01 Acute respiratory failure with hypoxia; I47.2 Ventricular tachycardia; J44.0 Chronic obstructive pulmonary disease with (acute) lower respiratory infection; I48.21 Permanent atrial fibrillation; Z79.01 Long term (current) use of anticoagulants; R79.1 Abnormal coagulation profile; T45.515A Adverse effect of anticoagulants, initial encounter; I10 Essential (primary) hypertension; I25.10 Atherosclerotic heart disease of native coronary artery without angina pectoris; E78.5 Hyperlipidemia, unspecified; Z95.0 Presence of cardiac pacemaker; N40.0 Benign prostatic hyperplasia without lower urinary tract symptoms; E11.9 Type 2 diabetes mellitus without complications; G47.33 Obstructive sleep apnea (adult) (pediatric); Z66 Do not resuscitate
CPT/HCPCS: 36415; 71045; 80053; 82550; 83605; 83615; 83880; 84145; 84439; 84443; 84484; 85025; 85379; 85384; 85610; 86140; 87040; 87426; 87449; 87635; 93005; 97802; 99251; 99285; J7030; J7050; A4216; G0463; U0002

== ENCOUNTER 2020-07-21 22:15 | Observation (INO) | payer MEDICARE, SELFPAY ==
[2020-07-07 02:21] VITALS: BMI 39.6
[2020-07-21 22:16] VITALS: BP 118/69; PULSE 86; RESP 15; TEMP 36.6; O2SAT 93; BMI 39.5
--- NOTE | 2020-07-21 22:46 | ED.DCSUM_ITS ---
History of Present Illness Chief Complaint: Abn Labs Informant: Patient Narrative: Patient recently diagnosed with Covid pneumonia approximately 2 to 3 weeks ago. He is on Coumadin for chronic atrial fibrillation. He received some oral steroids and has some inflammation to his mouth from them. He noticed tonight when he woke up he had some bleeding from his gums. It is mild in nature. He tried to switch it all out but it continued so he came in for further evaluation as he is on Coumadin. His last INR approximately 2 weeks ago was 2.9. Patient denies any injury to his mouth. 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 (3) Paroxysmal ventricular tachycardia Status: Acute (4) Sinus pause Status: Acute (5) Syncope and collapse Status: Acute (6) Atherosclerotic heart disease of [place] coronary artery without angina pectoris Status: Chronic Comment: MILD (7) COPD (chronic obstructive pulmonary disease) Status: Chronic (8) Cardiac pacemaker in situ Status: Chronic (9) Chronic atrial fibrillation with rapid ventricular response Status: Chronic (10) Essential hypertension Status: Chronic (11) HLD (hyperlipidemia) Status: Chronic (12) Persistent atrial fibrillation Status: Chronic (13) Type 2 diabetes mellitus Status: Chronic Past Medical History - Allergies and Home Meds Allergies/Adverse Reactions: Allergies atorvastatin [From Lipitor] Adverse Reaction (Severe, Verified 07/06/20 20:24) myalgia Primary Care Physician: Rafiq Blanchard DO [Primary Care Provider] - Prior records reviewed: Yes Past Medical History: - - See problem list Surgical History: herniorrhaphy - Right inguinal, pacemaker implantation, - - This post carpal tunnel syndrome Lives: With Family Smoking Status: Never smoker Alcohol: None Drugs: None - Family History Maternal Family History: Family History (Last Reviewed 02/22/20 @ 16:19 by Jamilah Rice) Mother Diabetes Hypertension Father Colon cancer Family History: Reports: Diabetes, - - chf Paternal Family History: Family History (Last Reviewed 02/22/20 @ 16:19 by Jamilah Rice) Mother Diabetes Hypertension Father Colon cancer Family History: Reports: - - colon cancer Review of Systems General: Denies: Chills, Fever, Sweats Eyes: Denies: Visual changes - bilaterally, Diplopia ENT: Denies: Rhinorrhea, Sore throat Cardiovascular: Denies: Chest pain, Palpitations Respiratory: Denies: Dyspnea, Cough, Dyspnea on exertion Gastrointestinal: Denies: Abdominal pain, Nausea, Vomiting, Diarrhea, Melena, Hematochezia Genitourinary: Denies: Dysuria, Hematuria, Frequency Musculoskeletal: Denies: Back pain, Extremity Pain Skin: Denies: Rash, Wounds Neurological: Denies: Headache, Weakness, Numbness Physical Exam Vital Signs/Narrative: Vital Signs Temp Pulse Resp BP Pulse Ox 07/21/20 22:16 97.8 F 86 15 118/69 93 General: Well nourished, Well developed, No Acute Distress Head: Normocephalic, Atraumatic Eyes: Perrl, EOMI ENT: Moist mucous membranes, No rhinorrhea, - - Mild dried blood on his gingiva diffusely. Neck: Supple, Nontender Cardiovascular: Regular rate, Regular rhythm, No murmurs Respiratory: No distress, CTA bilaterally, Chest nontender Abdomen: Soft, Nontender, Nondistended, Normal bowel sounds Rectal: Guaiac positive, - - Gross brown stool. Negative for: Nontender, Tenderness Back: Nontender, Normal Inspection Extremities: Nontender, No edema Skin: Normal color, No rash Neurological: Alert, Oriented x3, Cranial nerves II-XII grossly intact, Normal Strength, Normal Sensation Psychological: Normal affect, Normal Mood Diagnostic/Tx/Re-eval - Medical Decision Making INR checked in the emergency department. The patient will swish and swallow and spit out the dried blood. INR is 13.3. Patient chewed on ice chips and was able to slow the bleeding down almost to a stop. Hemoglobin is 11.7 chest slightly below was on discharge approximately 2 weeks ago. Guaiac showed gross brown stool with no bleeding. He is guaiac positive however microscopically. Patient given vitamin K IV and fresh frozen plasma due to the fact that he has bleeding not only from his gums but his GI tract. He remained stable. Vital signs are stable. His last colonoscopy was couple years ago. He has had 3 total. He has been told they are normal. I suspect he is just bleeding because of his supratherapeutic INR. Patient has almost slowed his gingival bleeding down to a stop with just ice chips. I do not feel he needs TXA at this time. Will be admitted - Critical Care Time Critical care time (excluding procedures): 30-74 minutes ED Disposition - Plan for ED Patient: Disposition: Acute Care Hospital [facility] Diagnosis: Supratherapeutic INR, Occult blood in stools, Gingival bleeding
[2020-07-21 23:22] LABS: Prothrombin Time (Protime)PT. 102.3 SECONDS (11.7-14.9)
[2020-07-21 23:23] LABS: International Normalized Ratio 13.3
[2020-07-22] VITALS (9 sets, daily range): BP systolic 105–126; BP diastolic 70–79; PULSE 72–105; RESP 15–24; TEMP 36.3–37.3; O2SAT 91–97; BMI 40.3
[2020-07-22 00:07] LABS: Absolute Neutrophil Count 7.9 X10^3/uL (2.0-7.7); Basophil# 0.01 X10^3/uL; Basophil% 0.1 % (0-1); Eosinophil# 0.11 X10^3/uL; Eosinophils% 1.1 % (0-5); Hematocrit 37.2 % (40-54); Hemoglobin 11.7 g/dL (13.0-16.5); Mean Corp Hgb Conc 31.5 g/dL (32-36); Mean Corpuscular Hgb 30.4 pg (27.0-32.0); Mean Corpuscular Volume 96.6 fL (80-94); Mean Platelet Vol. 10.1 fl (6.2-12.0); Monocyte# 1.31 X10^3/uL; Monocyte% 13.2 % (0-10); NRBC Flagged by Analyzer 0 % (0-5); Neutrophil # 7.94 X10^3/uL (2.7-7.7); Neutrophil % 80.1 % (47-70); POSITIVE DIFFERENTIAL YES; Platelet Count 199 K/mm3 (150-450); RBC Distribution Width CV 14.7 % (11.6-14.6); RBC Distribution Width SD 51.1 fl (35.1-43.9); Red Blood Count 3.85 M/mm3 (4.6-6.2); White Blood Count 9.9 K/mm3 (4.4-11.0)
[2020-07-22 00:09] LABS: Differential Indicated SCAN CRITERIA MET
[2020-07-22 00:35] LABS: Anion Gap 1 (5-15); BUN 33 mg/dL (7-18); BUN/Creat Ratio 38.6 RATIO (10-20); Calcium,Total 7.9 mg/dL (8.5-10.1); Chloride 107 mmol/L (98-107); Creatinine, Serum 0.86 mg/dL (0.70-1.30); EST Glomerular Filtration Rate 93 mL/min (>60); Est Glom Filt Rate - Afr Amer 113 mL/min (>60); Estimated Creatinine Clearance 75.12 ml/min; Glucose 132 mg/dL (74-106); Potassium 4.7 mmol/L (3.5-5.1); Sodium Level 144 mmol/L (136-145)
[2020-07-22 00:38] LABS: Differential Comment SCANNED
--- NOTE | 2020-07-22 01:53 | PCM.HP.STD ---
Problem List (1) Occult blood positive stool Status: Acute (2) Chronic atrial fibrillation with rapid ventricular response Status: Chronic (3) COVID-19 Status: Acute (4) Supratherapeutic INR Status: Acute (5) Occult blood in stools Status: Acute (6) Gingival bleeding Status: Acute (7) Essential hypertension Status: Chronic (8) Atherosclerotic heart disease of [place] coronary artery without angina pectoris Status: Chronic Qualifiers: [place] vs. transplanted heart: [place] heart Qualified Code(s): I25.10 - Atherosclerotic heart disease of [place] coronary artery without angina pectoris Comment: MILD (9) Persistent atrial fibrillation Status: Chronic (10) Cardiac pacemaker in situ Status: Chronic (11) halfway (current) use of anticoagulants Status: Chronic (12) COPD (chronic obstructive pulmonary disease) Status: Chronic Qualifiers: COPD type: unspecified COPD Qualified Code(s): J44.9 - Chronic obstructive pulmonary disease, unspecified (13) Type 2 diabetes mellitus Status: Chronic (14) HLD (hyperlipidemia) Status: Chronic Qualifiers: Hyperlipidemia type: unspecified Qualified Code(s): E78.5 - Hyperlipidemia, unspecified History of Present Illness Date of Admission: 07/22/20 Chief Complaint: Mouth bleeding The patient is a 74 year old M with a significant history of hypertension; COPD; paroxysmal A. fib; permanent pacemaker; and type 2 diabetes who presents to the emergency department with mouth bleeding. His symptoms started on the same day of presentation. Patient was concerned that his mouth bleeding might have been from using nystatin swish and swallow. Patient was recently diagnosed and treated for COVID-19 pneumonia. He was at admitted at our hospital for his COVID-19 pneumonia and was discharged on 07/10/2020. He was prescribed Decadron and home oxygen. He developed thrush which he thought might have been from the Decadron and subsequently was prescribed nystatin swish and swallow. His INR at the emergency department was elevated at 13.3. The plan was to discharge patient home with vitamin K. However patient called that patient has been having dark stools so further work-up should be done.Patient reports dark stools ever since he was discharged from the hospital. Rectal exam done by emergent department doctor showed that patient has brown stools. However his occult stool was positive. A decision was made to observe patient at hospital. 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) COPD (chronic obstructive pulmonary disease) (Chronic) Type 2 diabetes mellitus (Chronic) HLD (hyperlipidemia) (Chronic) Medical History: Medical History (Last Reviewed 02/22/20 @ 16:19 by Jamilah Rice) Essential hypertension (Chronic) I10 Sinus pause (Inactive) I45.5 Atherosclerotic heart disease of [place] coronary artery without angina pectoris (Chronic) I25.10 MILD Paroxysmal ventricular tachycardia (Inactive) I47.2 Persistent atrial fibrillation (Chronic) I48.1 Syncope and collapse (Inactive) R55 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 (Chronic) Z79.01 COPD (chronic obstructive pulmonary disease) (Chronic) J44.9 Type 2 diabetes mellitus (Chronic) E11.9 HLD (hyperlipidemia) (Chronic) E78.5 BPH (benign prostatic hyperplasia) N40.0 Emphysema of lung J43.9 History of cardioversion Z98.890 X 2 KATHARINA (obstructive sleep apnea) G47.33 Allergies atorvastatin [From Lipitor] Adverse Reaction (Severe, Verified 07/06/20 20:24) myalgia Home Medications: Ambulatory Orders Medication Instructions Recorded Pravastatin [Pravachol] 20 mg PO QHS 08/21/16 Warfarin Sodium [Coumadin] 9 mg PO DAILY 08/21/16 metoprolol succinate 100 mg 100 mg PO BID #180 tab 08/15/19 tablet,extended release 24 hr furosemide 20 mg tablet 20 mg PO DAILY PRN #30 tab 02/22/20 terazosin 10 mg capsule 10 mg PO BID #60 cap 06/07/20 Acetaminophen [Tylenol Tablet] 650 mg PO Q6H PRN PRN tab 07/10/20 Diltiazem CD [Cardizem CD] 180 mg PO Q12 #120 cap 07/10/20 Surgical History: Surgical History (Last Reviewed 02/22/20 @ 16:19 by Jamilah Rice) Cardiac pacemaker in situ (Chronic) Onset Date: ~01/2009 Z95.0 History of carpal tunnel surgery Z98.890 S/P right inguinal hernia repair Z98.890, Z87.19 07/17/2017 Surgical History: herniorrhaphy - Right inguinal, pacemaker implantation, - - This post carpal tunnel syndrome Psychiatric History: No pertinent psych hx Lives: With Family Smoking Status: Never smoker Alcohol: None Drugs: None - *Family History Maternal Family History: Family History (Last Reviewed 02/22/20 @ 16:19 by Jamilah Rice) Mother Diabetes Hypertension Father Colon cancer History Items: Diabetes, - - chf Paternal Family History: Family History (Last Reviewed 02/22/20 @ 16:19 by Jamilah Rice) Mother Diabetes Hypertension Father Colon cancer History Items: - - colon cancer Review of Systems Constitutional: Denies: Chills, Fever, Weight Change HEENT: Denies: Head Aches, Sinus Congestion, Sinus Drainage Cardiovascular: Denies: Chest Pain, Palpitations Respiratory: Denies: Cough, Shortness of breath at rest, Sputum production Gastrointestinal: Denies: Abdominal Pain, Nausea, Vomiting Genitourinary: Denies: Dysuria Musculoskeletal: Denies: Joint Pain, Joint Tenderness Skin: Denies: Rash, Wounds Neurological: Denies: Numbness, Tingling, Focal weakness Psychiatric: Denies: Anxiety, Depression, Homicidal Ideations, Suicidal Ideations Hematologic/ Lymphatic: Denies: Easy Bruising, Easy Bleeding VTE Information - Inpt Only VTE Present on Admission: No VTE Mechan Device Prophylaxis: None VTE Pharm Prophylaxis ordered?: No Reason prophylaxis not ordered:: Treatment Not Indicated - Patient is bleeding and with supra therapeutic INR Patient Problems: Active and Suspected Problems (Last Reviewed 02/22/20 @ 16:19 by Jamilah Rice) COVID-19 (Acute) Supratherapeutic INR (Acute) Occult blood in stools (Acute) Gingival bleeding (Acute) Occult blood positive stool (Acute) - Physical Exam Vitals/I&O's: Vital Signs Temp Pulse Resp BP Pulse Ox 97.8 F 86 15 118/69 93 07/21/20 22:16 07/21/20 22:16 07/21/20 22:16 07/21/20 22:16 07/21/20 22:16 Oxygen Delivery Method Room Air Weight: 117.934 kg Body Mass Index (BMI) 39.5 General: Alert, Oriented x3, Cooperative HEENT: Atraumatic, EOMI, Normocephalic Oral: - - Bleeding from [place] of mouth. Neck: Supple, No JVD, Negative Carotid Bruits Lungs: Clear to auscultation, Normal air movement Cardiovascular: Normal S1, Normal S2, No murmurs Abdomen: Bowel Sounds Present, Soft, Non Tender Extremities: Capillary Refill Less than 3 Seconds, Edema - Bilateral legs right worse than left Skin: No rashes, No breakdown, - - Erythema and scratches on right leg which patient attributes to scratching. Musculoskeletal: No Tenderness to Palpation of Joints or Extremities Neurological: Cranial nerves II-XII grossly intact Psych/Mental Status: Normal Affect, Appropriate Microbiology Past 72 Hours 07/22/20 00:25 Stool Stool Occult Blood (CARMEN) - Final Occult Blood Positive Laboratory Results 07/21/20 00:10: Sodium 144, Potassium 4.7, Chloride 107, Carbon Dioxide 36.0 H, Anion Gap 1 L, BUN 33 H, Creatinine 0.86, Estim Creat Clear Calc 75.12, Est GFR (MDRD) Af Amer 113, Est GFR (MDRD) Non-Af 93, BUN/Creatinine Ratio 38.6 H, Glucose 132 H, Calcium 7.9 L 07/21/20 22:50: PT 102.3 H, INR 13.3 H* 07/21/20 22:50: WBC 9.9, RBC 3.85 L, Hgb 11.7 L, Hct 37.2 L, MCV 96.6 H, MCH 30.4, MCHC 31.5 L, RDW Std Deviation 51.1 H, RDW Coeff of [place] 14.7 H, Plt Count 199, MPV 10.1, Immature Gran % (Auto) 0.500, Neut % (Auto) 80.1 H, Lymph % (Auto) 5.0 L, [place] % (Auto) 13.2 H, Eos % (Auto) 1.1, Baso % (Auto) 0.1, Absolute Neuts (auto) 7.9 H, Absolute Lymphs (auto) 0.50 L, Nucleated RBC % 0, Differential Comment SCANNED Assessment/Plan All Active Problems (Last Reviewed 02/22/20 @ 16:19 by Jamilah Rice) COVID-19 (Acute) Supratherapeutic INR (Acute) Occult blood in stools (Acute) Gingival bleeding (Acute) Occult blood positive stool (Acute) The patient is a 74 year old M with a significant history of hypertension; COPD; permanent pacemaker; paroxysmal A. fib; and type 2 diabetes who presents to the emergency department with mouth bleeding; dark stools; positive stool occult blood and with elevated INR. Supratherapeutic INR with mouth bleeding and positive occult stools. Patient report that he has had 3 colonoscopies with the last colonoscopy 2 years ago. All colonoscopies has been normal. Vitamin K and 2 units of fresh frozen plasma ordered at the emergency department. Emergent department doctor gave ice which appeared to temporarily improve mouth bleeding. Discussed emergent department doctor who ordered tranexamic acid for oral irrigation. We will trend H&H and repeat INR. N.p.o. except meds of sips and ice. Hold Lasix. Continue metoprolol; Cardizem and Terazosin: Parameters placed for blood pressures. Atrial fibrillation Cardizem and metoprolol continued. Coumadin held secondary therapeutic INR. Hypertension Blood pressure is stable in regard to his age. Metoprolol Cardizem continued. Trend blood pressure and adjust blood pressure medications. Recently diagnosed COVID-19 and COPD Patient is out of isolation at this time. On 2 L oxygen saturation is 93 to 94%. Mild wheezing. As needed albuterol ordered. Congestive heart failure. Stable Echocardiogram on 08/22 2016 showed ejection fraction of 65%. Moderate pulmonary hypertension. Mild valvular abnormalities. Diabetes mellitus Blood glucose is stable. N.p.o. as above. BPH Terazosin continued. Blood pressure parameters placed. DVT prophylaxis Not indicated in the setting of therapeutic INR and patient bleeding. OBSV E&M: 62305 Initial observation care L1
--- NOTE | 2020-07-22 02:33 | ED.RN ---
TXA GIVEN ORALLY PER INSTRUCTIONS. PT ABLE TO SWISH 30ML IN MOUTH FOR 5 MINUTES.
[2020-07-22 06:43] LABS: Hemoglobin 11.5 g/dL (13.0-16.5)
[2020-07-22 06:49] LABS: International Normalized Ratio 3.3; Prothrombin Time (Protime)PT. 33.2 SECONDS (11.7-14.9)
[2020-07-22] MEDS: dilTIAZem CD 180 MG Capsule PO (10:04)
[2020-07-22] MEDS: Metoprolol(XL)Succ 100 MG Tablet PO (10:04)
[2020-07-22] MEDS: Doxazosin 4 MG Tablet 8 MG PO (10:04)
--- NOTE | 2020-07-22 10:22 | PCM.DC ---
- Discharge Diagnoses Current Active Problems: Current Active and Chronic Problems (Last Reviewed 02/22/20 @ 16:19 by Jamilah Rice) Chronic atrial fibrillation with rapid ventricular response (Chronic) COVID-19 (Acute) Supratherapeutic INR (Acute) Occult blood in stools (Acute) Gingival bleeding (Acute) Occult blood positive stool (Acute) Essential hypertension (Chronic) Atherosclerotic heart disease of [place] coronary artery without angina pectoris (Chronic) MILD Persistent atrial fibrillation (Chronic) Cardiac pacemaker in situ (Chronic ~01/2009) intermediate (current) use of anticoagulants (Chronic) COPD (chronic obstructive pulmonary disease) (Chronic) Type 2 diabetes mellitus (Chronic) HLD (hyperlipidemia) (Chronic) You will use the following diet at home:: Cardiac Your food should be the consistency of: Regular Your liquids should be the consistency of: Regular/Thin Discharge Activity: Return to Normal Activity Additional Instructions: You should not take coumadin today or tomorrow. Tomorrow you will need to contact Dr. Genao office to arrange to have your INR checked and to obtain further instructions regarding when to resume coumadin and how much to take. This will depend on the results of your INR check. Allergies/Adverse Reactions: Allergies atorvastatin [From Lipitor] Adverse Reaction (Severe, Verified 07/06/20 20:24) myalgia Medications to take at Discharge Pravastatin [Pravachol] 20 mg PO QHS 08/21/16 Warfarin Sodium [Coumadin] 9 mg PO DAILY 08/21/16 metoprolol succinate 100 mg tablet,extended release 24 hr 100 mg PO BID #180 tab 08/15/19 furosemide 20 mg tablet 20 mg PO DAILY PRN #30 tab 02/22/20 terazosin 10 mg capsule 10 mg PO BID #60 cap 06/07/20 Acetaminophen [Tylenol Tablet] 650 mg PO Q6H PRN PRN tab 07/10/20 Diltiazem CD [Cardizem CD] 180 mg PO Q12 #120 cap 07/10/20 Primary Care Physician: Rafiq Blanchard DO [Primary Care Provider] - Please follow up with your Primary Care Physician in: 1-2 weeks Test Results: Test results from this visit will be discussed in further detail at your follow-up appointment, if applicable. Please Follow Up With: Ilir South MD - Call office When: Tomorrow Proposed Discharge Date: 07/22/20
--- NOTE | 2020-07-22 11:15 | DS.PCM_ITS ---
<Kostas Artis - Last Filed: 07/22/20 11:15> Discharge Date and Diagnosis - Problem List Patient Problems: Active and Suspected Problems (Last Reviewed 02/22/20 @ 16:19 by Jamilah Rice) Supratherapeutic INR (Acute) Occult blood in stools (Acute) Gingival bleeding (Acute) Date of Admission: 07/22/20 Date of Discharge: 07/22/20 - Primary Discharge Diagnosis Acute Problems: Active Problems (Last Reviewed 02/22/20 @ 16:19 by Jamilah Rice) Elevated INR + hemoccult stool Mild macrocytic anemia - Secondary Discharge Diagnosis Chronic Problems: Chronic Problems (Last Reviewed 02/22/20 @ 16:19 by Jamilah Rice) Chronic atrial fibrillation with rapid ventricular response (Chronic) Essential hypertension (Chronic) 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 South, on coumadin, recently with Covid 19 and treated with decadron, who presented to the ER with mouth bleeding. He had been using nystatin swish and swallow for thrush likely related to recent decadron therapy. He was found to have an INR of 13.3. He had dark stools as well and hemoccult was positive. Hgb was mildly at 11.7. He was given Vitamin K 10 mg IV x1. His mouth was treated with a tranexamic acid swish and spit. The following day his INR was 3.3 and he had no complaints and requested to be discharged home. Hgb was 11.5. He was advised not to take coumadin today or tomorrow. He was advised to call Dr. Genao office in the AM to have his INR checked and to receive further instructions regarding coumadin use. He was discharged home in stable condition. He will also need follow up with his PCP In 1-2 weeks. This patient was seen by Kostas Artis PA-C under the supervision of Dr. Mckeon. [] Patient Problems: Active and Suspected Problems (Last Reviewed 02/22/20 @ 16:19 by Jamilah Rice) Supratherapeutic INR (Acute) Occult blood in stools (Acute) Gingival bleeding (Acute) - Physical Exam Vitals/I&O's: Vital Signs Temp Pulse Resp BP Pulse Ox 98.1 F 100 18 115/72 91 07/22/20 10:02 07/22/20 10:04 07/22/20 10:02 07/22/20 10:02 07/22/20 10:02 Oxygen Flow Rate (L/min) 2.5 Oxygen Delivery Method Nasal Cannula Weight: 264 lb 15.93 oz Body Mass Index (BMI) 40.3 Intake and Output for Last 24 Hours 07/20/20 07/21/20 07/22/20 23:59 23:59 23:59 Intake Total 161 / 161 Balance 161 / 161 General: Alert, Oriented x3, Cooperative HEENT: Atraumatic, PERRLA, EOMI, Normocephalic Neck: Supple, No JVD, Negative Carotid Bruits Lungs: Diminished, Wheezes Cardiovascular: Regular rate, No murmurs Abdomen: Bowel Sounds Present, Soft, Non Tender, Obese Extremities: No edema, Capillary Refill Less than 3 Seconds Skin: No rashes, No breakdown Musculoskeletal: No Tenderness to Palpation of Joints or Extremities Neurological: Cranial nerves II-XII grossly intact Psych/Mental Status: Normal Affect, Appropriate, Alert and oriented to time, place, person, mood and affect Microbiology Past 72 Hours 07/22/20 00:25 Stool Stool Occult Blood (CARMEN) - Final Occult Blood Positive Laboratory Results 07/21/20 00:10: Sodium 144, Potassium 4.7, Chloride 107, Carbon Dioxide 36.0 H, Anion Gap 1 L, BUN 33 H, Creatinine 0.86, Estim Creat Clear Calc 75.12, Est GFR (MDRD) Af Amer 113, Est GFR (MDRD) Non-Af 93, BUN/Creatinine Ratio 38.6 H, Glucose 132 H, Calcium 7.9 L 07/21/20 22:50: PT 102.3 H, INR 13.3 H* 07/21/20 22:50: WBC 9.9, RBC 3.85 L, Hgb 11.7 L, Hct 37.2 L, MCV 96.6 H, MCH 30.4, MCHC 31.5 L, RDW Std Deviation 51.1 H, RDW Coeff of Dalila 14.7 H, Plt Count 199, MPV 10.1, Immature Gran % (Auto) 0.500, Neut % (Auto) 80.1 H, Lymph % (Auto) 5.0 L, [place] % (Auto) 13.2 H, Eos % (Auto) 1.1, Baso % (Auto) 0.1, Absolute Neuts (auto) 7.9 H, Absolute Lymphs (auto) 0.50 L, Nucleated RBC % 0, Differential Comment SCANNED 07/22/20 05:12: PT 33.2 H, INR 3.3 07/22/20 05:12: Hgb 11.5 L, Hct 37.0 L Current Medications Acetaminophen (Acetaminophen 325 Mg Tablet) 650 mg PO Q6H PRN PRN PRN Reason: Pain Score 1-10/Temp > 100.7 F Albuterol Sulfate (Albuterol 2.5 Mg/3 Ml Vial.Neb.) 2.5 mg INHALATION Q4H PRN PRN PRN Reason: SOB/Wheezing Diltiazem HCl (Diltiazem Cd 180 Mg Capsule) 180 mg PO Q12 [facility] Last Admin: 07/22/20 10:04 Dose: 180 mg Documented by: Doxazosin Mesylate (Doxazosin 4 Mg Tablet) 8 mg PO BID [facility] Last Admin: 07/22/20 10:04 Dose: 8 mg Documented by: Melatonin (Melatonin 3 Mg Tablet) 3 mg PO QHS PRN PRN PRN Reason: INSOMNIA Metoprolol Succinate (Metoprolol(Xl)Succ 100 Mg Tablet) 100 mg PO BID [facility] Last Admin: 07/22/20 10:04 Dose: 100 mg Documented by: Ondansetron HCl (Ondansetron 4 Mg/2 Ml Vial) 4 mg IV Q8H PRN PRN PRN Reason: NAUSEA/VOMITING Pravastatin Sodium (Pravastatin 20 Mg Tablet) 20 mg PO QHS [facility] Sodium Chloride (0.9% Saline Lock 10 Ml Syringe) 10 - 40 ml IV UD PRN PRN Reason: SALINE FLUSH Discharge Diet: Low fat/ Low Cholesterol, 1800 Calorie Control Diet, 2000 mg Sodium Diet Discharge Activity: Return to Normal Activity Home Medications: Medications to take at Discharge Pravastatin [Pravachol] 20 mg PO QHS 08/21/16 Warfarin Sodium [Coumadin] 9 mg PO DAILY 08/21/16 metoprolol succinate 100 mg tablet,extended release 24 hr 100 mg PO BID #180 tab 08/15/19 furosemide 20 mg tablet 20 mg PO DAILY PRN #30 tab 02/22/20 terazosin 10 mg capsule 10 mg PO BID #60 cap 06/07/20 Acetaminophen [Tylenol Tablet] 650 mg PO Q6H PRN PRN tab 07/10/20 Diltiazem CD [Cardizem CD] 180 mg PO Q12 #120 cap 07/10/20 Primary Care Physician: Rafiq Blanchard DO [Primary Care Provider] - Please follow up with your Primary Care Physician in: 1-2 weeks Please Follow Up With: Ilir South MD - Call office When: Tomorrow Disposition: Home Minutes spent on discharge:: 35 Patient Condition:: Stable Medical Necessity - Tobacco Use Smoking Status: Never smoker Meaningful Use Info Meaningful Use Diagnoses (Choose all that apply): None applicable <Melissa Mckeon - Last Filed: 07/22/20 12:03> Discharge Date and Diagnosis - Primary Discharge Diagnosis Acute Problems: Active Problems (Last Reviewed 02/22/20 @ 16:19 by Jamilah Rice) COVID-19 (Acute) Supratherapeutic INR (Acute) Occult blood in stools (Acute) Gingival bleeding (Acute) Occult blood positive stool (Acute) - Secondary Discharge Diagnosis Chronic Problems: Chronic Problems (Last Reviewed 02/22/20 @ 16:19 by Jamilah Rice) Chronic atrial fibrillation with rapid ventricular response (Chronic) Essential hypertension (Chronic) Atherosclerotic heart disease of [place] coronary artery without angina pectoris (Chronic) MILD Persistent atrial fibrillation (Chronic) Cardiac pacemaker in situ (Chronic ~01/2009) 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 Patient presented to the emergency room because of gingival bleeding and he has been on Coumadin for atrial fibrillation. He was recently admitted for COVID-19 and he was discharged on Decadron and oxygen. He was found to have INR 13.3. He did have gingival bleeding and he also found to have positive occult blood in the stool. Patient denied any black stools or hematochezia, denied hemoptysis or hematemesis. He received vitamin K 10 mg IV x1 and also received tranexamic acid p.o. swish and spit. Admission hemoglobin was 11.7 g/dL and on the day of discharge, hemoglobin was 11.5 g/dL. Hemoglobin and hematocrit were stable and there was no significant drop. Gingival bleeding stopped. INR came down to 3.3. Other routine blood work was unremarkable. Vital signs were stable. Patient remained on oxygen at 2 L which she has been on for recent COVID-19 pneumonia. Patient discharged home in a stable condition, instructed to not take Coumadin tonight or tomorrow night, order given to repeat INR tomorrow, recommended follow-up with PCP in 1 to 2 weeks. - Physical Exam General: Alert, Oriented x3, Cooperative, No apparent distress. HEENT: Atraumatic, PERRLA, EOMI. Neck: Supple, No JVD, Negative Carotid Bruits, Trachea Midline, Thyroid Normal. Lungs diminished breath sounds bilateral, otherwise clear no rhonchi, No wheeze, No rales. Cardiovascular: Irregular rate and rhythm, Normal S1, Normal S2, PMI Normal. Abdomen: Bowel Sounds Present, Soft, Non Tender, Non-Distended, No Hepato- splenomegaly. Extremities: No clubbing, No cyanosis, No edema Skin: No rashes, No breakdown Neurological: Cranial nerves are intact, neuro grossly intact Vital Signs are stable. This note was generated with YuMingle dictation software. It may contain incorrect words, spelling, and punctuation that were not noted in checking the note before signing. - Physical Exam Vitals/I&O's: Vital Signs Temp Pulse Resp BP Pulse Ox 98.1 F 100 18 115/72 91 07/22/20 10:02 07/22/20 10:04 07/22/20 10:02 07/22/20 10:02 07/22/20 10:02 Oxygen Flow Rate (L/min) 2.5 Oxygen Delivery Method Nasal Cannula Weight: 264 lb 15.93 oz Body Mass Index (BMI) 40.3 Intake and Output for Last 24 Hours 07/20/20 07/21/20 07/22/20 23:59 23:59 23:59 Intake Total 161 / 161 Balance 161 / 161 Microbiology Past 72 Hours 07/22/20 00:25 Stool Stool Occult Blood (CARMEN) - Final Occult Blood Positive Laboratory Results 07/21/20 00:10: Sodium 144, Potassium 4.7, Chloride 107, Carbon Dioxide 36.0 H, Anion Gap 1 L, BUN 33 H, Creatinine 0.86, Estim Creat Clear Calc 75.12, Est GFR (MDRD) Af Amer 113, Est GFR (MDRD) Non-Af 93, BUN/Creatinine Ratio 38.6 H, Glucose 132 H, Calcium 7.9 L 07/21/20 22:50: PT 102.3 H, INR 13.3 H* 07/21/20 22:50: WBC 9.9, RBC 3.85 L, Hgb 11.7 L, Hct 37.2 L, MCV 96.6 H, MCH 30.4, MCHC 31.5 L, RDW Std Deviation 51.1 H, RDW Coeff of Dalila 14.7 H, Plt Count 199, MPV 10.1, Immature Gran % (Auto) 0.500, Neut % (Auto) 80.1 H, Lymph % (Auto) 5.0 L, [place] % (Auto) 13.2 H, Eos % (Auto) 1.1, Baso % (Auto) 0.1, Absolute Neuts (auto) 7.9 H, Absolute Lymphs (auto) 0.50 L, Nucleated RBC % 0, Differential Comment SCANNED 07/22/20 05:12: PT 33.2 H, INR 3.3 07/22/20 05:12: Hgb 11.5 L, Hct 37.0 L Current Medications Acetaminophen (Acetaminophen 325 Mg Tablet) 650 mg PO Q6H PRN PRN PRN Reason: Pain Score 1-10/Temp > 100.7 F Albuterol Sulfate (Albuterol 2.5 Mg/3 Ml Vial.Neb.) 2.5 mg INHALATION Q4H PRN PRN PRN Reason: SOB/Wheezing Diltiazem HCl (Diltiazem Cd 180 Mg Capsule) 180 mg PO Q12 [facility] Last Admin: 07/22/20 10:04 Dose: 180 mg Documented by: Doxazosin Mesylate (Doxazosin 4 Mg Tablet) 8 mg PO BID [facility] Last Admin: 07/22/20 10:04 Dose: 8 mg Documented by: Melatonin (Melatonin 3 Mg Tablet) 3 mg PO QHS PRN PRN PRN Reason: INSOMNIA Metoprolol Succinate (Metoprolol(Xl)Succ 100 Mg Tablet) 100 mg PO BID [facility] Last Admin: 07/22/20 10:04 Dose: 100 mg Documented by: Ondansetron HCl (Ondansetron 4 Mg/2 Ml Vial) 4 mg IV Q8H PRN PRN PRN Reason: NAUSEA/VOMITING Pravastatin Sodium (Pravastatin 20 Mg Tablet) 20 mg PO QHS [facility] Sodium Chloride (0.9% Saline Lock 10 Ml Syringe) 10 - 40 ml IV UD PRN PRN Reason: SALINE FLUSH Minutes spent on discharge:: 27 Patient Condition:: Stable Meaningful Use Info Meaningful Use Diagnoses (Choose all that apply): None applicable OBSV E&M: 39031 Observ/hosp same date L2
[2020-07-22 12:30] LABS: Hematocrit 35.8 % (40-54); Hemoglobin 11.3 g/dL (13.0-16.5)
== END 2020-07-22 14:38 | disposition home or self-care (01) ==
LOC: ED 07-22 01:35 → MS3 07-22 02:10
PROVIDERS: Admitting Provider Hospitalist; Emergency Provider Emergency Medicine; PCP Family Medicine; Visit Provider Hospitalist
DX: R79.1 Abnormal coagulation profile (principal); K06.8 Other specified disorders of gingiva and edentulous alveolar ridge; K92.1 Melena; G47.33 Obstructive sleep apnea (adult) (pediatric); I11.0 Hypertensive heart disease with heart failure; I50.9 Heart failure, unspecified; E78.5 Hyperlipidemia, unspecified; E11.9 Type 2 diabetes mellitus without complications; I25.10 Atherosclerotic heart disease of native coronary artery without angina pectoris; J44.9 Chronic obstructive pulmonary disease, unspecified; I48.19 Other persistent atrial fibrillation; Z79.01 Long term (current) use of anticoagulants; Z86.16 Personal history of COVID-19; Z87.01 Personal history of pneumonia (recurrent); Z95.0 Presence of cardiac pacemaker; Z79.899 Other long term (current) drug therapy; N40.0 Benign prostatic hyperplasia without lower urinary tract symptoms
CPT/HCPCS: 36415; 80048; 82274; 85014; 85018; 85025; 85610; 96365; 99218; 99284; J7050; A4216; G0378; J3490

== ENCOUNTER → 2020-07-31 08:32 | Outpatient (CLI) | payer MEDICARE, SELFPAY ==
[2020-07-22 02:45] VITALS: BMI 40.3
[2020-07-31 12:37] LABS: Anion Gap 6 (5-15); BNP,B-Type NATRIURETIC PEPTIDE 103.8 pg/mL (0-100); BUN 21 mg/dL (7-18); BUN/Creat Ratio 25.8 RATIO (10-20); Calcium,Total 7.8 mg/dL (8.5-10.1); Chloride 107 mmol/L (98-107); Creatinine, Serum 0.82 mg/dL (0.70-1.30); EST Glomerular Filtration Rate 99 mL/min (>60); Est Glom Filt Rate - Afr Amer 119 mL/min (>60); Glucose 93 mg/dL (74-106); Magnesium 2.2 mg/dL (1.6-2.6); Potassium 4.1 mmol/L (3.5-5.1); Sodium Level 144 mmol/L (136-145)
== END ==
PROVIDERS: PCP Family Medicine; Visit Provider Family Medicine
DX: I50.9 Heart failure, unspecified (principal); R25.2 Cramp and spasm
CPT/HCPCS: 36415; 80048; 83735; 83880

== ENCOUNTER → 2020-08-17 10:21 | Outpatient (CLI) | payer MEDICARE, SELFPAY ==
[2020-07-22 02:45] VITALS: BMI 40.3
[2020-08-17 12:46] LABS: International Normalized Ratio 2.7; Prothrombin Time (Protime)PT. 28.5 SECONDS (11.7-14.9)
[2020-08-17 13:08] LABS: Anion Gap 2 (5-15); BUN 27 mg/dL (7-18); BUN/Creat Ratio 28.5 RATIO (10-20); Calcium,Total 8.3 mg/dL (8.5-10.1); Chloride 110 mmol/L (98-107); Creatinine, Serum 0.95 mg/dL (0.70-1.30); EST Glomerular Filtration Rate 83 mL/min (>60); Est Glom Filt Rate - Afr Amer 100 mL/min (>60); Glucose 76 mg/dL (74-106); Potassium 3.9 mmol/L (3.5-5.1); Sodium Level 145 mmol/L (136-145)
== END ==
PROVIDERS: PCP Family Medicine; Visit Provider Internal Medicine Cardiovascular Disease
DX: I10 Essential (primary) hypertension (principal); I48.11 Longstanding persistent atrial fibrillation; Z79.01 Long term (current) use of anticoagulants
CPT/HCPCS: 36415; 80048; 85610

== ENCOUNTER → 2020-09-03 08:03 | Outpatient (CLI) | payer MEDICARE, SELFPAY ==
[2020-07-22 02:45] VITALS: BMI 40.3
--- NOTE | 2020-09-03 13:35 | PFT ---
INTRODUCTION: The patient is a 75-year-old male that presents for pulmonary function studies secondary to a diagnosis of COPD. Respiratory therapy reports good patient effort. Bronchodilators were used during testing. INTERPRETATION: Forced expiration spirometry demonstrates the presence of a mild large airways obstructive ventilatory defect. There was no significant response to aerosolized bronchodilators. Spirograms are of good quality and do not plateau indicating slow emptying of the lungs. Body plethysmography was performed and revealed an elevated RV to 127% of predicted, indicative of underlying air trapping. Diffusing capacity by single breath CO is preserved at 86% of predicted. IMPRESSION: Irreversible mild large airways obstructive ventilatory defect with associated air trapping and preserved diffusing capacity. There are no previous pulmonary function studies available for comparison.
== END ==
PROVIDERS: PCP Family Medicine; Referring Provider Family Medicine; Visit Provider Family Medicine
DX: J44.9 Chronic obstructive pulmonary disease, unspecified (principal); R06.2 Wheezing
CPT/HCPCS: 94060; 94726; 94729

== ENCOUNTER 2021-09-30 09:18 | Outpatient (RCR) | payer MEDICARE, SELFPAY ==
--- NOTE | 2021-09-30 09:40 | RAD_ITS ---
STUDY: X-RAY - PELVIS AND RIGHT HIP REASON FOR EXAM: Male, 76 years old. RIGHT HIP PAIN TECHNIQUE: 3 views of the pelvis and hip. COMPARISON: None. FINDINGS: There is a non-specific bowel gas pattern. Normal visualized soft tissue structures. Degenerative changes of the lumbosacral spine. Localized sclerosis of the right iliac crest adjacent to the right SI joint measures 1.3 x 1.5 cm. Normal bilateral superior and inferior pubic rami. Normal pubic symphysis. Normal bilateral ischial tuberosities. Normal visualized femoral head. Normal acetabulum. Normal hip joint. RAD/HIP, UNI W/ Pelvis 2-3 Views IMPRESSION: 1. Normal x-ray examination of the right hip. 2. Focal sclerosis of the inferior right iliac crest adjacent to the SI joint could represent a bone island, related to degenerative changes of the SI joint although other etiologies are possible. If there is known history of neoplasm (and absent comparison studies), recommend bone scan or MRI. Electronically Signed: Ishan Nunn MD ([place]) at 15:58 EDT Reading Location ID and State: [place] , Service support ,
[2021-09-30 10:26] LABS: Absolute Lymphocyte Count 0.71 X10^3/uL (0.83-4.51); Absolute Neutrophil Count 3.1 X10^3/uL (2.0-7.7); Basophil# 0.03 X10^3/uL; Basophil% 0.6 % (0-1); Eosinophil# 0.11 X10^3/uL; Eosinophils% 2.4 % (0-5); Hematocrit 40.5 % (40-54); Hemoglobin 13.6 g/dL (13.0-16.5); Lymphocyte # 0.71 X10^3/ul (0.83-4.51); Lymphocyte % 15.4 % (19-41); Mean Corp Hgb Conc 33.6 g/dL (32-36); Mean Corpuscular Hgb 31.1 pg (27.0-32.0); Mean Corpuscular Volume 92.7 fL (80-94); Monocyte# 0.64 X10^3/uL; Monocyte% 13.9 % (0-10); NRBC Flagged by Analyzer 0 % (0-5); Neutrophil # 3.12 X10^3/uL (2.7-7.7); Neutrophil % 67.5 % (47-70); Platelet Count 212 K/mm3 (150-450); RBC Distribution Width CV 13.2 % (11.6-14.6); RBC Distribution Width SD 45.2 fl (35.1-43.9); Red Blood Count 4.37 M/mm3 (4.6-6.2); White Blood Count 4.6 K/mm3 (4.4-11.0)
[2021-09-30 10:32] LABS: International Normalized Ratio 3.7
[2021-09-30 11:10] LABS: AST(SGOT) 22 U/L (15-37); Alanine Aminotransfer ALT/SGPT 26 U/L (16-61); Albumin, Serum 3.2 g/dL (3.2-5.0); Alkaline Phosphatase 102 U/L (45-117); Anion Gap 4 (5-15); BUN 23 mg/dL (7-18); BUN/Creat Ratio 24.9 RATIO (10-20); Bilirubin, Direct 0.14 mg/dL (0.00-0.30); Calcium,Total 8.3 mg/dL (8.5-10.1); Chloride 109 mmol/L (98-107); Cholesterol 157 mg/dL (200); Creatinine, Serum 0.92 mg/dL (0.70-1.30); EST Glomerular Filtration Rate 85 mL/min (>60); Est Glom Filt Rate - Afr Amer 103 mL/min (>60); Globulin 2.9 g/dL (2.2-4.2); Glucose 102 mg/dL (74-106); High Density Lipoprotein 32 mg/dL; PSA,Total - Annual Screen 0.67 ng/mL (0.00-4.00); Potassium 4.3 mmol/L (3.5-5.1); Protein, Total 6.1 g/dL (6.4-8.2); Sodium Level 142 mmol/L (136-145); Triglycerides 193 mg/dL; Very Low Density Lipoprotein 39 mg/dL (5-40)
[2021-09-30 11:32] LABS: Hepatitis C Antibody Non-Reactive (Nonreactive)
== END 2021-09-30 18:00 | disposition home or self-care (01) ==
LOC: LAB 09:18
PROVIDERS: PCP Family Medicine; Referring Provider Internal Medicine Cardiovascular Disease; Visit Provider Internal Medicine Cardiovascular Disease
DX: I48.19 Other persistent atrial fibrillation (principal); M25.551 Pain in right hip; I10 Essential (primary) hypertension; E78.00 Pure hypercholesterolemia, unspecified; Z79.01 Long term (current) use of anticoagulants; Z12.5 Encounter for screening for malignant neoplasm of prostate; Z91.89 Other specified personal risk factors, not elsewhere classified; Z51.81 Encounter for therapeutic drug level monitoring
CPT/HCPCS: 36415; 73502; 80048; 80061; 80076; 84153; 85025; 85610; 86803; G0103

== ENCOUNTER 2021-10-14 12:10 | Outpatient (RCR) | payer MEDICARE, SELFPAY ==
[2021-10-14 12:20] LABS: Prothrombin Time Fingerstick 23.8 SEC (11.7-14.9)
== END 2021-10-14 18:00 | disposition home or self-care (01) ==
LOC: LAB 12:10
PROVIDERS: PCP Family Medicine; Referring Provider Internal Medicine Cardiovascular Disease; Visit Provider Internal Medicine Cardiovascular Disease
DX: I48.19 Other persistent atrial fibrillation (principal); Z79.01 Long term (current) use of anticoagulants
CPT/HCPCS: 36416; 85610

== ENCOUNTER → 2021-10-16 | Outpatient (CLI) | payer MEDICARE, SELFPAY ==
--- NOTE | 2021-10-16 10:04 | NM_ITS ---
INDICATION: R HIP OSTEOARTHRITIS, SCLEROTIC LESION SEEN ON XRAY -- NO INJURY -- PAIN IN RIGHT HIP EXAMINATION: NUCLEAR MEDICINE TRIPLE PHASE BONE SCAN - NM Bone Three Phase Study TECHNIQUE: [id number] MDP were intravenously administered. Bone images were obtained. Triple phase protocol was utilized. COMPARISON/CORRELATED STUDIES: None. FINDINGS: Flow images demonstrate normal blood flow to both lower extremities. Blood pool images demonstrate normal blood pool to both lower extremities. Delayed images demonstrate normal activity in both lower extremities. NM/Bone Scan Three Phase IMPRESSION: Negative triple-phase bone scan. Electronically Signed: Chele Murcia MD at 0:26 EDT ,
== END | disposition home or self-care (01) ==
LOC: NM 10:03
PROVIDERS: PCP Family Medicine; Referring Provider Specialist; Visit Provider Specialist
DX: M16.11 Unilateral primary osteoarthritis, right hip (principal)
CPT/HCPCS: 78315; A9503

== ENCOUNTER 2021-11-22 10:28 | Outpatient (RCR) | payer MEDICARE, SELFPAY ==
[2021-11-22 11:01] LABS: International Normalized Ratio 2.4
== END 2021-11-22 18:00 | disposition home or self-care (01) ==
LOC: LAB 10:28
PROVIDERS: PCP Family Medicine; Referring Provider Internal Medicine Cardiovascular Disease; Visit Provider Internal Medicine Cardiovascular Disease
DX: I48.19 Other persistent atrial fibrillation (principal); Z79.01 Long term (current) use of anticoagulants
CPT/HCPCS: 36415; 85610

== ENCOUNTER 2021-12-13 09:53 | Outpatient (RCR) | payer MEDICARE, SELFPAY ==
[2021-12-13 10:01] LABS: INR Fingerstick 2.2; Prothrombin Time Fingerstick 25.4 SEC (11.7-14.9)
== END 2021-12-13 23:59 | disposition home or self-care (01) ==
LOC: LAB 09:53
PROVIDERS: PCP Family Medicine; Referring Provider Internal Medicine Cardiovascular Disease; Visit Provider Internal Medicine Cardiovascular Disease
DX: I48.19 Other persistent atrial fibrillation (principal); Z79.01 Long term (current) use of anticoagulants
CPT/HCPCS: 36416; 85610

== ENCOUNTER → 2021-12-25 | Outpatient (CLI) | payer MEDICARE, SELFPAY ==
--- NOTE | 2021-12-25 14:34 | CT_ITS ---
STUDY: CT PELVIS WITHOUT CONTRAST REASON FOR EXAM: Male, 76 years old. HIP PAIN right groin bulge. RIGHT INGUINAL HERNIA REPAIR 4 YEARS AGO TECHNIQUE: Transaxial imaging of the pelvis was performed without oral contrast, and without intravenous administration of contrast material. Individualized dose optimization techniques were used for this CT. COMPARISON: None. FINDINGS: Normal urinary bladder. There is a right inguinal hernia containing intra-abdominal fat. The herniated fat extends into the right scrotum. There is no bowel involvement. There is no incarceration. There is no findings suggesting that this is causing a bowel obstruction. Normal visualized small intestine. Normal visualized colon. Degenerative findings of the hips. There is no pelvic fluid. There is no pelvic mass lesion or lymphadenopathy. There is diffuse atherosclerotic calcification of the pelvic arteries. Sclerotic focus in the right iliac bone. Umbilical hernia containing fat. There are diffuse degenerative changes of the visualized lumbar spine. Vacuum disc phenomenon. There is bilateral neural foraminal stenosis at L4-5 and L5-S1. CT/Pelvis without IV Contrast IMPRESSION: There is a right inguinal hernia containing intra-abdominal fat. The herniated fat extends into the right scrotum. There is no bowel involvement. There is no incarceration. There is no findings suggesting that this is causing a bowel obstruction. There is bilateral neural foraminal stenosis at L4-5 and L5-S1. Electronically Signed: Altaf Riggs MD at 16:47 EDT ,
== END | disposition home or self-care (01) ==
LOC: CT 14:33
PROVIDERS: PCP Family Medicine; Visit Provider Surgery
DX: R19.01 Right upper quadrant abdominal swelling, mass and lump (principal)
CPT/HCPCS: 72192

== ENCOUNTER 2022-04-24 09:34 | Outpatient (RCR) | payer MEDICARE, SELFPAY ==
[2022-04-11 08:26] LABS: International Normalized Ratio 2.2; Prothrombin Time (Protime)PT. 23.7 SECONDS (11.7-14.9)
[2022-04-11 08:43] LABS: AST(SGOT) 19 U/L (15-37); Alanine Aminotransfer ALT/SGPT 24 U/L (16-61); Albumin, Serum 3.2 g/dL (3.2-5.0); Alkaline Phosphatase 106 U/L (45-117); Bilirubin, Direct 0.16 mg/dL (0.00-0.30); Cholesterol 168 mg/dL (200); Globulin 3.1 g/dL (2.2-4.2); High Density Lipoprotein 32 mg/dL; Protein, Total 6.3 g/dL (6.4-8.2); Triglycerides 167 mg/dL; Very Low Density Lipoprotein 33 mg/dL (5-40)
[2022-04-11 08:49] LABS: Anion Gap 3 (5-15); BUN 24 mg/dL (7-18); BUN/Creat Ratio 28.3 RATIO (10-20); Calcium,Total 8.6 mg/dL (8.5-10.1); Chloride 110 mmol/L (98-107); Creatinine, Serum 0.85 mg/dL (0.70-1.30); EST Glomerular Filtration Rate 94 mL/min (>60); Est Glom Filt Rate - Afr Amer 114 mL/min (>60); Glucose 110 mg/dL (74-106); Potassium 4.1 mmol/L (3.5-5.1); Sodium Level 145 mmol/L (136-145)
[2022-04-24 09:50] LABS: INR Fingerstick 1.9
== END 2022-04-24 18:00 | disposition home or self-care (01) ==
LOC: LAB 09:34
PROVIDERS: Nurse Practitioner Gerontology; PCP Family Medicine; Referring Provider Internal Medicine Cardiovascular Disease; Visit Provider Internal Medicine Cardiovascular Disease
DX: I48.19 Other persistent atrial fibrillation (principal); Z79.01 Long term (current) use of anticoagulants; E78.00 Pure hypercholesterolemia, unspecified; I49.5 Sick sinus syndrome; Z95.0 Presence of cardiac pacemaker
CPT/HCPCS: 36415; 36416; 80048; 80061; 80076; 85610

== ENCOUNTER → 2022-04-24 | Outpatient (CLI) | payer MEDICARE, SELFPAY ==
--- NOTE | 2022-04-24 10:58 | RAD_ITS ---
EXAM: XR CHEST, 2 VIEWS CLINICAL INDICATION: for PPM generator change TECHNIQUE: Frontal and lateral views of the chest. This report was created using [employer] report generation technology. COMPARISON: XR Chest dated july 06 2020 FINDINGS: LUNGS AND PLEURAL SPACES: Residual linear scarring within the right lung. No pneumothorax. No effusion. HEART: Normal heart size. MEDIASTINUM: No mediastinal or hilar mass. BONES/JOINTS: No acute abnormality. SOFT TISSUES: Normal. TUBES, LINES AND DEVICES: Ventricular pacemaker wire remains in place. RAD/Chest PA and Lateral IMPRESSION: No acute cardiopulmonary abnormality. Electronically Signed: Nikita Maldonado MD at 13:22 EDT ,
[2022-04-24 11:14] LABS: Bacteria 0 SEEN /hpf (None Seen); Mucous, Urine 0 SEEN /hpf (<or=2+)
[2022-04-24 11:35] LABS: Hematocrit 44.4 % (40-54); Hemoglobin 14.9 g/dL (13.0-16.5); Mean Corp Hgb Conc 33.6 g/dL (32-36); Mean Corpuscular Volume 92.5 fL (80-94); Mean Platelet Vol. 9.8 fl (6.2-12.0); Platelet Count 200 K/mm3 (150-450); RBC Distribution Width CV 13.2 % (11.6-14.6); RBC Distribution Width SD 44.9 fl (35.1-43.9); White Blood Count 4.5 K/mm3 (4.4-11.0)
[2022-04-24 11:40] LABS: Color, Urine Yellow (Yellow); Glucose, Dipstick Normal (Normal); Ketone-Dipstick 5 mg/dl (Negative); Occult Blood-Urine 10 /ul (Negative); Urine Clarity Sl. Cloudy (Clear); Urine Urobilinogen 1 mg/dl (Normal)
[2022-04-24 11:44] LABS: International Normalized Ratio 2.3; Prothrombin Time (Protime)PT. 24.8 SECONDS (11.7-14.9)
[2022-04-24 11:55] LABS: Nitrite-Dipstick Negative (Negative); Protein-Dipstick Negative (Negative); Urine Bilirubin Dipstick Negative (Negative)
[2022-04-24 11:56] LABS: Leukocyte Esterase-Dipstick 25 /ul (Negative); Red Blood Cells-Urine 0-5 SEEN /hpf (0-5); Squamous Epithelial Cells - UA 0-5 SEEN /hpf (0-5); White Blood Cells 0-5 SEEN /hpf (0-5)
[2022-04-24 12:00] LABS: Anion Gap 1 (5-15); BUN 22 mg/dL (7-18); BUN/Creat Ratio 23.9 RATIO (10-20); Calcium,Total 8.6 mg/dL (8.5-10.1); Chloride 109 mmol/L (98-107); Creatinine, Serum 0.92 mg/dL (0.70-1.30); EST Glomerular Filtration Rate 85 mL/min (>60); Est Glom Filt Rate - Afr Amer 103 mL/min (>60); Glucose 97 mg/dL (74-106); Potassium 4.4 mmol/L (3.5-5.1); Sodium Level 142 mmol/L (136-145)
== END | disposition home or self-care (01) ==
PROVIDERS: PCP Family Medicine; Referring Provider Internal Medicine Cardiovascular Disease; Visit Provider Internal Medicine Cardiovascular Disease
DX: I48.19 Other persistent atrial fibrillation (principal); I49.5 Sick sinus syndrome; Z95.0 Presence of cardiac pacemaker; Z79.01 Long term (current) use of anticoagulants
CPT/HCPCS: 36415; 36416; 71046; 80048; 81001; 85027; 85610

== ENCOUNTER 2022-05-05 09:30 | Day surgery (SDC) | payer MEDICARE, SELFPAY ==
[2022-05-02 08:24] VITALS: BMI 42.3
[2022-05-05 09:40] LABS: Prothrombin Time Fingerstick 12.6 SEC (11.7-14.9)
--- NOTE | 2022-05-05 11:11 | CL.IE_ITS ---
Patient: EDOUARD KIM Study Date: 05/05/2022 Performing: Mitchell Trejo MD : 1945 Age: 76 Gender: male PROCEDURES PERFORMED [id number])BATTERY REMOVAL+REPLACEMENT PACER-SINGLE LEAD INDICATIONS Sinoatrial node dysfunction/Sick sinus syndrome End-of-life replacement indicator PROCEDURE DETAILS The patient was brought to the Catheterization Lab in the postabsorptive nonsedated state. Informed consent was obtained prior to the procedure. Local anesthetic was given subcutaneously to the left upper chest area with Lidocaine 2%. Incision was made to the left upper chest. Old PPM generator was removed. New PPM generator was attached to the lead(s) and inserted into the pocket. PPM generator was then interrogated by the vb net programmer. PPM generator was then interrogated by the vb net programmer. Device pocket was irrigated with antibiotic, ancef.. Subcutaneous closure was completed with 3-0 Vicryl. Skin closure was completed with 4-0 Vicryl. Steri-strips applied to Lt chest area. The patient tolerated the procedure well. 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 Ancef 2 Gm IV @ 05/05/2022 10:24:16 Signed By Mitchell Trejo MD On 05/05/2022 11:10:28 Mitchell Trejo MD
== END 2022-05-05 12:20 | disposition home or self-care (01) ==
LOC: CLSP 09:31
PROVIDERS: PCP Family Medicine; Referring Provider Internal Medicine Cardiovascular Disease; Visit Provider Internal Medicine Cardiovascular Disease
DX: I49.5 Sick sinus syndrome (principal); I48.19 Other persistent atrial fibrillation; G47.33 Obstructive sleep apnea (adult) (pediatric); I25.10 Atherosclerotic heart disease of native coronary artery without angina pectoris; I10 Essential (primary) hypertension; E78.5 Hyperlipidemia, unspecified; E66.9 Obesity, unspecified; Z86.16 Personal history of COVID-19; Z95.0 Presence of cardiac pacemaker; Z79.899 Other long term (current) drug therapy; Z79.01 Long term (current) use of anticoagulants; Z87.891 Personal history of nicotine dependence
CPT/HCPCS: 33227; 36416; 85610; 99152; 99153; J7040; J7050

== ENCOUNTER 2022-05-12 11:30 | Outpatient (RCR) | payer MEDICARE, SELFPAY ==
[2022-05-12 11:55] LABS: INR Fingerstick 1.4; Prothrombin Time Fingerstick 17.4 SEC (11.7-14.9)
== END 2022-05-28 18:00 | disposition home or self-care (01) ==
LOC: LAB 11:30
PROVIDERS: PCP Family Medicine; Referring Provider Internal Medicine Cardiovascular Disease; Visit Provider Internal Medicine Cardiovascular Disease
DX: I48.19 Other persistent atrial fibrillation (principal); Z79.01 Long term (current) use of anticoagulants; I49.5 Sick sinus syndrome; Z95.0 Presence of cardiac pacemaker
CPT/HCPCS: 36416; 85610

== ENCOUNTER 2022-07-24 10:03 | Outpatient (RCR) | payer MEDICARE, SELFPAY ==
[2022-07-09 10:41] LABS: INR Fingerstick 1.6; Prothrombin Time Fingerstick 19.2 SEC (11.7-14.9)
[2022-07-24 10:10] LABS: INR Fingerstick 1.8; Prothrombin Time Fingerstick 21.2 SEC (11.7-14.9)
== END 2022-07-24 12:00 | disposition home or self-care (01) ==
LOC: LAB 10:03
PROVIDERS: PCP Family Medicine; Referring Provider Internal Medicine Cardiovascular Disease; Visit Provider Internal Medicine Cardiovascular Disease
DX: I48.19 Other persistent atrial fibrillation (principal); Z79.01 Long term (current) use of anticoagulants; I49.5 Sick sinus syndrome; Z95.0 Presence of cardiac pacemaker
CPT/HCPCS: 36416; 85610

== ENCOUNTER 2022-08-26 08:34 | Outpatient (RCR) | payer MEDICARE, SELFPAY ==
[2022-08-08 08:35] LABS: INR Fingerstick 2.1; Prothrombin Time Fingerstick 24.5 SEC (11.7-14.9)
[2022-08-26 08:40] LABS: INR Fingerstick 2.2; Prothrombin Time Fingerstick 25.8 SEC (11.7-14.9)
== END 2022-08-26 18:00 | disposition home or self-care (01) ==
LOC: LAB 08:34
PROVIDERS: PCP Family Medicine; Referring Provider Internal Medicine Cardiovascular Disease; Visit Provider Internal Medicine Cardiovascular Disease
DX: I48.19 Other persistent atrial fibrillation (principal); Z79.01 Long term (current) use of anticoagulants
CPT/HCPCS: 36416; 85610

== ENCOUNTER 2022-11-04 11:38 | Outpatient (RCR) | payer MEDICARE, SELFPAY ==
[2022-11-04 12:00] LABS: Prothrombin Time Fingerstick 21.9 SEC (11.7-14.9)
== END 2022-11-26 18:00 | disposition home or self-care (01) ==
LOC: LAB 11:38
PROVIDERS: PCP Family Medicine; Referring Provider Internal Medicine Cardiovascular Disease; Visit Provider Internal Medicine Cardiovascular Disease
DX: I48.19 Other persistent atrial fibrillation (principal); Z79.01 Long term (current) use of anticoagulants
CPT/HCPCS: 36416; 85610

== ENCOUNTER 2023-03-26 11:14 | Outpatient (RCR) | payer MEDICARE, SELFPAY ==
[2023-03-05 12:49] LABS: International Normalized Ratio 2.2; Prothrombin Time (Protime)PT. 24.9 SECONDS (11.7-14.9)
[2023-03-05 12:58] LABS: AST(SGOT) 14 U/L (15-37); Alanine Aminotransfer ALT/SGPT 26 U/L (16-61); Alkaline Phosphatase 91 U/L (45-117); Bilirubin, Direct 0.14 mg/dL (0.00-0.30); Cholesterol 170 mg/dL (200); Globulin 3.3 g/dL (2.2-4.2); High Density Lipoprotein 30 mg/dL; Protein, Total 6.3 g/dL (6.4-8.2); Triglycerides 220 mg/dL; Very Low Density Lipoprotein 44 mg/dL (5-40)
[2023-03-26 11:21] LABS: Prothrombin Time Fingerstick 22.1 SEC (11.7-14.9)
== END 2023-03-26 18:00 | disposition home or self-care (01) ==
LOC: LAB 11:14
PROVIDERS: Physician Assistant Medical; PCP Family Medicine; Referring Provider Internal Medicine Cardiovascular Disease; Visit Provider Internal Medicine Cardiovascular Disease
DX: I48.19 Other persistent atrial fibrillation (principal); Z79.01 Long term (current) use of anticoagulants
CPT/HCPCS: 36416; 80061; 80076; 85610

== ENCOUNTER → 2023-03-26 | Outpatient (CLI) | payer MEDICARE, SELFPAY | END | disposition home or self-care (01) | LOC: SL 11:14 | PROVIDERS: PCP Family Medicine; Referring Provider Family Medicine; Visit Provider Family Medicine | DX: G47.33 Obstructive sleep apnea (adult) (pediatric) (principal); G47.10 Hypersomnia, unspecified | CPT/HCPCS: 95806 ==

== ENCOUNTER 2023-03-31 16:22 | Outpatient (RCR) | payer MEDICARE, SELFPAY ==
[2023-03-31 17:50] LABS: Hematocrit 43.4 % (40-54); Hemoglobin 14.5 g/dL (13.0-16.5); Mean Corp Hgb Conc 33.4 g/dL (32-36); Mean Corpuscular Hgb 31.3 pg (27.0-32.0); Mean Corpuscular Volume 93.5 fL (80-94); Mean Platelet Vol. 9.8 fl (6.2-12.0); Platelet Count 264 K/mm3 (150-450); RBC Distribution Width SD 44.5 fl (35.1-43.9); Red Blood Count 4.64 M/mm3 (4.6-6.2); White Blood Count 6.7 K/mm3 (4.4-11.0)
[2023-03-31 18:03] LABS: International Normalized Ratio 2.4; Prothrombin Time (Protime)PT. 26.5 SECONDS (11.7-14.9)
[2023-03-31 18:33] LABS: Erythrocyte Sedimentation Rate 10 mm/hr (0-20)
== END 2023-03-31 18:00 | disposition home or self-care (01) ==
LOC: MTLAB 16:22
PROVIDERS: PCP Family Medicine; Referring Provider Internal Medicine Cardiovascular Disease; Visit Provider Internal Medicine Cardiovascular Disease
DX: I48.19 Other persistent atrial fibrillation (principal); Z79.01 Long term (current) use of anticoagulants
CPT/HCPCS: 36415; 85027; 85610; 85652

== ENCOUNTER 2023-05-28 09:34 | Outpatient (RCR) | payer MEDICARE, SELFPAY ==
[2023-05-13 09:37] LABS: INR Fingerstick 2.6; Prothrombin Time Fingerstick 28.1 SEC (11.7-14.9)
[2023-05-28 11:00] LABS: International Normalized Ratio 2.3; Prothrombin Time (Protime)PT. 25.6 SECONDS (11.7-14.9)
[2023-05-28 11:12] LABS: Anion Gap 7 (5-15); BUN 24 mg/dL (7-18); BUN/Creat Ratio 22.4 RATIO (10-20); Calcium,Total 8.4 mg/dL (8.5-10.1); Chloride 105 mmol/L (98-107); Creatinine, Serum 1.07 mg/dL (0.70-1.30); EST Glomerular Filtration Rate 72 mL/min (>60); Est Glom Filt Rate - Afr Amer 87 mL/min (>60); Glucose 118 mg/dL (74-106); Potassium 3.8 mmol/L (3.5-5.1); Sodium Level 143 mmol/L (136-145)
== END 2023-05-28 18:00 | disposition home or self-care (01) ==
LOC: LAB 09:34
PROVIDERS: Nurse Practitioner Family; PCP Family Medicine; Referring Provider Physician Assistant Medical; Visit Provider Physician Assistant Medical
DX: I48.19 Other persistent atrial fibrillation (principal); Z79.01 Long term (current) use of anticoagulants
CPT/HCPCS: 36415; 36416; 80048; 85610

== ENCOUNTER 2023-10-06 12:10 | Outpatient (RCR) | payer MEDICARE, SELFPAY ==
[2023-10-06 12:31] LABS: INR Fingerstick 2.4; Prothrombin Time Fingerstick 24.3 SEC (11.7-14.9)
== END 2023-10-27 23:00 | disposition home or self-care (01) ==
LOC: LAB 12:10
PROVIDERS: PCP Family Medicine; Referring Provider Physician Assistant Medical; Visit Provider Physician Assistant Medical
DX: I48.19 Other persistent atrial fibrillation (principal); Z79.01 Long term (current) use of anticoagulants
CPT/HCPCS: 36416; 85610

== ENCOUNTER 2023-11-24 09:35 | Outpatient (RCR) | payer MEDICARE, SELFPAY ==
[2023-11-24 12:37] LABS: Absolute Lymphocyte Count 0.82 X10^3/uL (0.83-4.51); Absolute Neutrophil Count 3.5 X10^3/uL (2.0-7.7); Basophil# 0.03 X10^3/uL; Basophil% 0.6 % (0-1); Eosinophil# 0.11 X10^3/uL; Eosinophils% 2.1 % (0-5); Hematocrit 43.6 % (40-54); Lymphocyte # 0.82 X10^3/ul (0.83-4.51); Lymphocyte % 15.8 % (19-41); Mean Corp Hgb Conc 32.1 g/dL (32-36); Mean Corpuscular Hgb 30.6 pg (27.0-32.0); Mean Corpuscular Volume 95.2 fL (80-94); Mean Platelet Vol. 9.9 fl (6.2-12.0); Monocyte# 0.72 X10^3/uL; Monocyte% 13.9 % (0-10); NRBC Flagged by Analyzer 0 % (0-5); Neutrophil # 3.49 X10^3/uL (2.7-7.7); Neutrophil % 67.2 % (47-70); Platelet Count 238 K/mm3 (150-450); RBC Distribution Width CV 13.2 % (11.6-14.6); RBC Distribution Width SD 45.9 fl (35.1-43.9); Red Blood Count 4.58 M/mm3 (4.6-6.2); White Blood Count 5.2 K/mm3 (4.4-11.0)
[2023-11-24 12:42] LABS: International Normalized Ratio 3.4; Prothrombin Time (Protime)PT. 34.3 SECONDS (11.7-14.9)
[2023-11-24 12:53] LABS: Anion Gap 3 (5-15); BUN 23 mg/dL (7-18); BUN/Creat Ratio 25.2 RATIO (10-20); Calcium,Total 8.9 mg/dL (8.5-10.1); Chloride 106 mmol/L (98-107); Creatinine, Serum 0.91 mg/dL (0.70-1.30); EST Glomerular Filtration Rate 86 mL/min (>60); Est Glom Filt Rate - Afr Amer 104 mL/min (>60); Glucose 116 mg/dL (74-106); PSA,Total - Annual Screen 0.88 ng/mL (0.00-4.00); Potassium 4.2 mmol/L (3.5-5.1); Sodium Level 140 mmol/L (136-145); Thyroid Stim Hormone (TSH) 1.46 uIU/mL (0.358-3.74)
[2023-11-24 13:09] LABS: Hemoglobin A1c 5.9 % (3.8-5.6)
== END 2023-11-27 18:00 | disposition home or self-care (01) ==
LOC: LAB 09:35
PROVIDERS: PCP Family Medicine; Referring Provider Physician Assistant Medical; Visit Provider Physician Assistant Medical
DX: I48.19 Other persistent atrial fibrillation (principal); Z79.01 Long term (current) use of anticoagulants; Z12.5 Encounter for screening for malignant neoplasm of prostate; Z51.81 Encounter for therapeutic drug level monitoring; H05.20 Unspecified exophthalmos; Z86.39 Personal history of other endocrine, nutritional and metabolic disease
CPT/HCPCS: 36415; 72110; 80048; 83036; 84153; 84443; 85025; 85610; G0103

== ENCOUNTER → 2023-11-24 | Outpatient (CLI) | payer MEDICARE, SELFPAY ==
--- NOTE | 2023-11-24 10:21 | RAD_ITS ---
INDICATION: R LUMBAR RADICULOPATHY EXAMINATION/TECHNIQUE: X-RAY - XR Spine Lumbar Min 4 Views COMPARISON: No relevant prior comparison study available FINDINGS: VERTEBRAE: Mild anterior wedging and decreased height of L2 vertebra probably chronic. No evidence of acute compression fracture deformity. Questionable pars defect on the left side at the level of L4. No evidence of spondylolisthesis. Preservation of the normal lumbar lordosis. Mild dextroscoliosis of the lower lumbar spine at the level of L4-L5. DISCS: Severe disc space narrowing of L4-L5 and to a lesser extent L3-L4. Endplate spondylosis at multiple levels. INCLUDED ABDOMEN: Included bowel gas pattern is non-obstructive. RAD/L/S Spine Min 4 Views IMPRESSION: Degenerative changes of the lumbar spine as described above. Electronically Signed: Prince Beatty MD at 10:51 EDT ,
== END | disposition home or self-care (01) ==
LOC: RAD 10:17
PROVIDERS: PCP Family Medicine; Referring Provider Family Medicine; Visit Provider Family Medicine
DX: M54.16 Radiculopathy, lumbar region (principal)
CPT/HCPCS: 72110

== ENCOUNTER 2024-01-18 15:21 | Outpatient (RCR) | payer MEDICARE, SELFPAY ==
[2024-01-18 15:48] LABS: INR Fingerstick 2.1; Prothrombin Time Fingerstick 22.3 SEC (11.7-14.9)
== END 2024-01-27 18:00 | disposition home or self-care (01) ==
LOC: LAB 15:21
PROVIDERS: PCP Family Medicine; Referring Provider Physician Assistant Medical; Visit Provider Physician Assistant Medical
DX: I48.19 Other persistent atrial fibrillation (principal); Z79.01 Long term (current) use of anticoagulants
CPT/HCPCS: 36416; 85610

== ENCOUNTER 2024-02-19 10:21 | Outpatient (RCR) | payer MEDICARE, SELFPAY ==
[2024-02-19 10:55] LABS: Absolute Lymphocyte Count 0.87 X10^3/uL (0.83-4.51); Absolute Neutrophil Count 3.7 X10^3/uL (2.0-7.7); Basophil# 0.03 X10^3/uL; Basophil% 0.6 % (0-1); Eosinophil# 0.12 X10^3/uL; Eosinophils% 2.2 % (0-5); Hematocrit 42.7 % (40-54); Lymphocyte # 0.87 X10^3/ul (0.83-4.51); Lymphocyte % 16.1 % (19-41); Mean Corp Hgb Conc 32.8 g/dL (32-36); Mean Corpuscular Hgb 31.1 pg (27.0-32.0); Mean Corpuscular Volume 94.9 fL (80-94); Mean Platelet Vol. 9.7 fl (6.2-12.0); Monocyte# 0.72 X10^3/uL; Monocyte% 13.3 % (0-10); NRBC Flagged by Analyzer 0 % (0-5); Neutrophil # 3.66 X10^3/uL (2.7-7.7); Neutrophil % 67.4 % (47-70); Platelet Count 215 K/mm3 (150-450); RBC Distribution Width CV 12.9 % (11.6-14.6); RBC Distribution Width SD 45.3 fl (35.1-43.9); White Blood Count 5.4 K/mm3 (4.4-11.0)
[2024-02-19 11:04] LABS: International Normalized Ratio 2.7; Prothrombin Time (Protime)PT. 28.6 SECONDS (11.7-14.9)
[2024-02-19 11:20] LABS: BNP,B-Type NATRIURETIC PEPTIDE 54.2 pg/mL (0-100)
[2024-02-19 11:36] LABS: AST(SGOT) 16 U/L (15-37); Alanine Aminotransfer ALT/SGPT 24 U/L (16-61); Alkaline Phosphatase 88 U/L (45-117); Anion Gap 5 (5-15); BUN 35 mg/dL (7-18); BUN/Creat Ratio 28.9 RATIO (10-20); Bilirubin, Direct 0.16 mg/dL (0.00-0.30); Calcium,Total 8.6 mg/dL (8.5-10.1); Chloride 104 mmol/L (98-107); Cholesterol 168 mg/dL (200); Creatinine, Serum 1.21 mg/dL (0.70-1.30); EST Glomerular Filtration Rate 62 mL/min (>60); Est Glom Filt Rate - Afr Amer 75 mL/min (>60); Globulin 3.2 g/dL (2.2-4.2); Glucose 114 mg/dL (74-106); High Density Lipoprotein 31 mg/dL; Potassium 3.8 mmol/L (3.5-5.1); Protein, Total 6.2 g/dL (6.4-8.2); Sodium Level 140 mmol/L (136-145); Triglycerides 234 mg/dL; Very Low Density Lipoprotein 47 mg/dL (5-40)
== END 2024-02-19 18:00 | disposition home or self-care (01) ==
LOC: LAB 10:21
PROVIDERS: Nurse Practitioner Family; Nurse Practitioner Gerontology; PCP Family Medicine; Referring Provider Physician Assistant Medical; Visit Provider Physician Assistant Medical
DX: I48.19 Other persistent atrial fibrillation (principal); Z79.01 Long term (current) use of anticoagulants; R06.09 Other forms of dyspnea; E78.5 Hyperlipidemia, unspecified
CPT/HCPCS: 36415; 80048; 80061; 80076; 83880; 84443; 85025; 85610

== ENCOUNTER 2024-03-10 12:32 | Outpatient (RCR) | payer MEDICARE, SELFPAY ==
[2024-03-10 12:59] LABS: INR Fingerstick 2.5; Prothrombin Time Fingerstick 25.4 SEC (11.7-14.9)
== END 2024-03-10 18:00 | disposition home or self-care (01) ==
LOC: LAB 12:32
PROVIDERS: PCP Family Medicine; Referring Provider Physician Assistant Medical; Visit Provider Physician Assistant Medical
DX: I48.19 Other persistent atrial fibrillation (principal); Z79.01 Long term (current) use of anticoagulants
CPT/HCPCS: 36416; 85610

== ENCOUNTER → 2024-03-11 | Outpatient (CLI) | payer MEDICARE, SELFPAY ==
--- NOTE | 2024-03-11 12:49 | ECHOD_ITS ---
Reason For Study: SOB Procedure This was a 2D Doppler, Color Flow transthoracic echocardiogram. Exam performed in department. Left Ventricle Normal LV size. The estimated ejection fraction is 65 %. Unable to assess diastolic dysfunction. No regional wall motion abnormalities noted. Right Ventricle Normal RV size. ICD or pacer leads identified within the right ventricle. Normal systolic function. Atria The left atrium is severely enlarged. The right atrium is moderately enlarged. ICD or pacer leads identified within the right atrium. No doppler evidence for ASD. Mitral Valve There is mild mitral annular calcification. There is no mitral valve stenosis. No mitral valve insufficiency. Tricuspid Valve There is no tricuspid stenosis. Trivial tricuspid valve insufficiency. Unable to estimate RV systolic pressure due to insufficient tricuspid regurgitant envelope. Aortic Valve Trisinus/trileaflet aortic valve. Aortic sclerosis, no stenosis. There is no aortic stenosis. No aortic valve insufficiency. Pulmonic Valve There is no pulmonic valvular stenosis. No pulmonic valve insufficiency. Great Vessels Normal aortic root. Pericardium/Pleural No pericardial effusion. MMode/2D Measurements & Calculations LVIDd: 4.6 cm IVSd: 1.2 cm LVOT diam: 2.3 cm LVIDs: 3.1 cm LVPWd: 1.1 cm LVOT area: 4.2 cm2 RVDd: 4.7 cm FS: 33.2 % Ao root diam: 3.2 cm LAV(MOD-bp): 172.8 ml LVAd ap4: 25.8 cm2 LAV(MOD-bp) Indexed: 73.2 ml/m2 LVLd ap4: 8.3 cm LAV(MOD-sp2): 166.9 ml EDV(MOD-sp4): 66.7 ml LAV(MOD-sp4): 165.8 ml EDV(sp4-el): 67.9 ml LVAs ap4: 14.1 cm2 LVLs ap4: 7.2 cm ESV(MOD-sp4): 23.9 ml ESV(sp4-el): 23.4 ml EF(MOD-sp4): 64.1 % EF(sp4-el): 65.5 % LVAd ap2: 23.5 cm2 SV(MOD-sp4): 42.8 ml SV(MOD-sp2): 38.4 ml LVLd ap2: 7.9 cm EDV(MOD-sp2): 59.0 ml EDV(sp2-el): 58.9 ml LVAs ap2: 13.4 cm2 LVLs ap2: 7.5 cm ESV(MOD-sp2): 20.6 ml ESV(sp2-el): 20.3 ml EF(MOD-sp2): 65.0 % SV(sp4-el): 44.5 ml LA A4 area: 42.2 cm2 RA A4 area: 27.8 cm2 TAPSE: 1.5 cm Doppler Measurements & Calculations MV E max lobo: 111.7 cm/sec Ao V2 max: 147.9 cm/sec LV V1 max: 101.0 cm/sec Ao max P.8 mmHg LV V1 max P.1 mmHg SAMRA(V,D): 2.9 cm2 PA V2 max: 74.5 cm/sec TR max lobo: 302.1 cm/sec TR max P.5 mmHg ECHO/Echo Complete Interpretation Summary The estimated ejection fraction is 65 %. Unable to assess diastolic dysfunction. The left atrium is severely enlarged. The right atrium is moderately enlarged. Ordering Physician: Cady Aparicio Referring Physician: Cady Aparicio Performed By: Shannan Austin RDCS
== END | disposition home or self-care (01) ==
LOC: CVS 12:49
PROVIDERS: PCP Family Medicine; Referring Provider Nurse Practitioner Gerontology; Visit Provider Nurse Practitioner Gerontology
DX: R06.09 Other forms of dyspnea (principal)
CPT/HCPCS: 93306

== ENCOUNTER 2024-07-04 12:30 | Outpatient (RCR) | payer MEDICARE, SELFPAY ==
[2024-07-04 13:12] LABS: Absolute Lymphocyte Count 0.69 X10^3/uL (0.83-4.51); Absolute Neutrophil Count 4.7 X10^3/uL (2.0-7.7); Basophil# 0.02 X10^3/uL; Basophil% 0.3 % (0-1); Eosinophils% 1.6 % (0-5); Hematocrit 44.6 % (40-54); Hemoglobin 14.1 g/dL (13.0-16.5); Lymphocyte # 0.69 X10^3/ul (0.83-4.51); Lymphocyte % 11.1 % (19-41); Mean Corp Hgb Conc 31.6 g/dL (32-36); Mean Corpuscular Hgb 30.3 pg (27.0-32.0); Mean Corpuscular Volume 95.7 fL (80-94); Mean Platelet Vol. 9.6 fl (6.2-12.0); Monocyte# 0.72 X10^3/uL; Monocyte% 11.6 % (0-10); NRBC Flagged by Analyzer 0 % (0-5); Neutrophil # 4.67 X10^3/uL (2.7-7.7); Neutrophil % 75.1 % (47-70); Platelet Count 196 K/mm3 (150-450); RBC Distribution Width CV 13.2 % (11.6-14.6); RBC Distribution Width SD 46.6 fl (35.1-43.9); Red Blood Count 4.66 M/mm3 (4.6-6.2); White Blood Count 6.2 K/mm3 (4.4-11.0)
[2024-07-04 13:27] LABS: International Normalized Ratio 2.9; Prothrombin Time (Protime)PT. 31.3 SECONDS (11.7-14.9)
[2024-07-04 13:48] LABS: AST(SGOT) 20 U/L (15-37); Alanine Aminotransfer ALT/SGPT 32 U/L (16-61); Albumin, Serum 3.1 g/dL (3.2-5.0); Alkaline Phosphatase 92 U/L (45-117); Anion Gap 3 (5-15); BUN 24 mg/dL (7-18); BUN/Creat Ratio 24.3 RATIO (10-20); Calcium,Total 8.2 mg/dL (8.5-10.1); Chloride 109 mmol/L (98-107); Creatinine, Serum 0.99 mg/dL (0.70-1.30); EST Glomerular Filtration Rate 78 mL/min (>60); Est Glom Filt Rate - Afr Amer 94 mL/min (>60); Globulin 3.2 g/dL (2.2-4.2); Glucose 141 mg/dL (74-106); Magnesium 2.1 mg/dL (1.6-2.6); Potassium 4.3 mmol/L (3.5-5.1); Protein, Total 6.3 g/dL (6.4-8.2); Sodium Level 141 mmol/L (136-145); T4 Free Direct 1.14 ng/dL (0.76-1.46)
== END 2024-07-04 18:00 | disposition home or self-care (01) ==
LOC: LAB 12:30
PROVIDERS: Nurse Practitioner Family; PCP Family Medicine; Referring Provider Physician Assistant Medical; Visit Provider Physician Assistant Medical
DX: I48.19 Other persistent atrial fibrillation (principal); Z79.01 Long term (current) use of anticoagulants; I49.5 Sick sinus syndrome; I25.10 Atherosclerotic heart disease of native coronary artery without angina pectoris; I10 Essential (primary) hypertension; E78.5 Hyperlipidemia, unspecified
CPT/HCPCS: 36415; 80053; 83735; 84439; 84443; 85025; 85610

== ENCOUNTER → 2024-08-01 | Outpatient (CLI) | payer MEDICARE, SELFPAY ==
--- NOTE | 2024-08-01 10:54 | STRESSREP ---
Stress Test Report Pharmacologic myocardial perfusion stress test. 78-year-old male with a history of chest pain Resting EKG demonstrates atrial fibrillation with a rate of 88 bpm. Resting blood pressure is 126/82 mmHg. 0.4 mg of regadenoson was infused per usual protocol followed by rapid intravenous saline flush injection. Continuous EKG monitoring was performed. The maximum heart rate was 103 bpm which was 71 of max impacted heart rate the maximum workload was 1 metabolic equivalent. At rest there were no ST or T wave changes noted to suggest ischemia and at peak infusion nonspecific ST changes were noted which did not meet the criteria for ischemia. No clinical angina is noted. The final blood pressure was 110/72 mmHg. Myocardial perfusion protocol. 15 mCi of technetium 99m sestamibi was injected at rest. 0.4 mg of regadenoson was infused per usual protocol. At peak infusion 45 mCi of technetium 99m sestamibi was injected stress images were obtained stress and rest images were reconstructed and compared in the short axis vertical long and horizontal long axis. Gated images were also obtained. Perfusion SPECT analysis: Review of the stress images demonstrate normal uptake of tracer noted in all areas of the myocardium. There is mild reduction of perfusion noted at the apex and a previous apical infarct a pacemaker activity cannot be completely excluded the resting images similar demonstrated normal uptake of tracer noted in all areas of the myocardium. No areas of reversibility are noted to suggest ischemia and no previous infarct is noted. Gated SPECT analysis: The gated ejection fraction is 65%. Conclusion: Normal pharmacologic myocardial perfusion stress test. Preserved ejection fraction.
== END | disposition home or self-care (01) ==
LOC: CVS 06:52
PROVIDERS: PCP Family Medicine; Referring Provider Nurse Practitioner Family; Visit Provider Nurse Practitioner Family
DX: I25.10 Atherosclerotic heart disease of native coronary artery without angina pectoris (principal); I48.19 Other persistent atrial fibrillation; I49.5 Sick sinus syndrome; I10 Essential (primary) hypertension; E78.5 Hyperlipidemia, unspecified; Z79.01 Long term (current) use of anticoagulants; Z95.0 Presence of cardiac pacemaker
CPT/HCPCS: 78452; 93017; A9500; A4216; J2785

== ENCOUNTER 2024-12-26 08:03 | Outpatient (RCR) | payer MEDICARE, SELFPAY ==
[2024-12-26 09:08] LABS: International Normalized Ratio 2.6; Prothrombin Time (Protime)PT. 28.1 SECONDS (11.7-14.9)
[2024-12-26 09:36] LABS: AST(SGOT) 18 U/L (<=37); Alanine Aminotransfer ALT/SGPT 16 U/L (<=46); Albumin, Serum 3.6 g/dL (3.4-4.8); Alkaline Phosphatase 92 U/L (40-129); Bilirubin, Direct 0.27 mg/dL (0.00-0.30); Globulin 2.3 g/dL (2.2-4.2); Total Bilirubin 0.52 mg/dL (0.00-1.30)
[2024-12-26 11:28] LABS: Cholesterol 149 mg/dL (<=200); High Density Lipoprotein 30 mg/dL; Low Density Lipoprotein Calc. 90 mg/dL; Triglycerides 143 mg/dL; Very Low Density Lipoprotein 29 mg/dL (5-40); cholesterol:hdl ratio screen 4.95
== END 2024-12-26 18:00 | disposition home or self-care (01) ==
LOC: LAB 08:03
PROVIDERS: Nurse Practitioner Family; PCP Family Medicine; Referring Provider Physician Assistant Medical; Visit Provider Physician Assistant Medical
DX: I48.19 Other persistent atrial fibrillation (principal); Z79.01 Long term (current) use of anticoagulants; E78.5 Hyperlipidemia, unspecified; M54.16 Radiculopathy, lumbar region
CPT/HCPCS: 36415; 80061; 80076; 85610

== ENCOUNTER 2025-02-16 09:47 | Outpatient (RCR) | payer MEDICARE, SELFPAY ==
[2025-02-16 10:19] LABS: Hematocrit 42.0 % (40-54); Hemoglobin 13.9 g/dL (13.0-16.5); Immature Granulocytes Count 0.010 X10^3/uL (0.0-0.0); Mean Corp Hgb Conc 33.1 g/dL (32-36); Mean Corpuscular Volume 93.8 fL (80-94); Mean Platelet Vol. 9.9 fl (6.2-12.0); NRBC Flagged by Analyzer 0 % (0-5); Platelet Count 201 K/mm3 (150-450); RBC Distribution Width CV 13.0 % (11.6-14.6); RBC Distribution Width SD 44.2 fl (35.1-43.9); Red Blood Count 4.48 M/mm3 (4.6-6.2); White Blood Count 5.6 K/mm3 (4.4-11.0)
[2025-02-16 10:35] LABS: Prothrombin Time (Protime)PT. 22.0 SECONDS (11.7-14.9)
[2025-02-16 10:42] LABS: Anion Gap 9 (5-15); BUN 22 mg/dL (4-19); BUN/Creat Ratio 22.8 RATIO (10-20); Calcium,Total 8.5 mg/dL (7.6-11.0); Carbon Dioxide 27.2 mmol/L (21.0-32.0); Chloride 105 mmol/L (98-108); Glucose 106 mg/dL (70-99); Potassium 4.3 mmol/L (3.3-5.1); Pro- Brain NATRIURETIC PEPTIDE 398 pg/mL (<=1800)
== END 2025-02-16 18:00 | disposition home or self-care (01) ==
LOC: LAB 09:47
PROVIDERS: Nurse Practitioner Family; Nurse Practitioner Gerontology; PCP Family Medicine; Referring Provider Physician Assistant Medical; Visit Provider Physician Assistant Medical
DX: I48.19 Other persistent atrial fibrillation (principal); Z79.01 Long term (current) use of anticoagulants
CPT/HCPCS: 36415; 80048; 83880; 85025; 85610

== ENCOUNTER → 2025-03-22 | Outpatient (CLI) | payer MEDICARE, SELFPAY ==
--- NOTE | 2025-03-22 09:45 | ECHOCS_ITS ---
Reason For Study Reason For Study: VELASQUEZ Procedure This was a 2D Doppler, Color Flow transthoracic echocardiogram. The study was technically difficult. Due to body habitus. Contrast injection was performed. Exam performed in department. Left Ventricle Normal size and thickness. The left ventricular ejection fraction is 65 %. Unable to assess diastolic dysfunction due to arrhythmia. Right Ventricle Normal right ventricle. ICD or pacer leads identified within the right ventricle. Atria There is severe biatrial dilatation. ICD or pacer leads identified within the right atrium. Mitral Valve Mild (1+) mitral valve insufficiency. Tricuspid Valve Moderate to severe tricuspid valve regurgitation. Estimated RVSP 50 mmHg. Aortic Valve Aortic valve sclerosis without stenosis. Pulmonic Valve The pulmonic valve is not well visualized. Great Vessels Normal sized aortic root. Pericardium/Pleural No pericardial effusion. Medication 22 gauge I.V. with prn adaptor inserted into right arm. Diluted definity 3.0ml given slow IV push to enhance endocardial definition. MMode/2D Measurements & Calculations LVIDd: 4.2 cm IVSd: 1.1 cm Ao root diam: 3.1 cm LVIDs: 2.5 cm LVPWd: 1.1 cm RVDd: 4.1 cm FS: 39.2 % LAV(MOD-bp): 133.3 ml LVAd ap4: 31.7 cm2 SV(MOD-sp4): 61.0 ml LAV(MOD-bp) Indexed: 55.9 ml/m2 LVLd ap4: 8.5 cm SI(MOD-sp4): 25.6 ml/m2 LAV(MOD-sp2): 120.4 ml EDV(MOD-sp4): 99.7 ml LAV(MOD-sp4): 150.2 ml EDV(sp4-el): 100.5 ml LVAs ap4: 18.2 cm2 LVLs ap4: 7.5 cm ESV(MOD-sp4): 38.7 ml ESV(sp4-el): 37.7 ml EF(MOD-sp4): 61.2 % EF(sp4-el): 62.5 % SV(sp4-el): 62.8 ml LA A4 area: 36.9 cm2 LA dimension(2D): 5.3 cm RA A4 area: 23.5 cm2 TAPSE: 1.9 cm Doppler Measurements & Calculations MV E max lobo: 127.9 cm/sec Ao V2 max: 132.6 cm/sec LV V1 max: 74.4 cm/sec Ao max P.0 mmHg LV V1 max P.2 mmHg Ao V2 mean: 96.0 cm/sec LV V1 mean P.3 mmHg Ao mean P.0 mmHg LV V1 mean: 54.4 cm/sec Ao V2 VTI: 23.0 cm LV V1 VTI: 15.0 cm AV (velocity ratio): 0.65 PA V2 max: 83.6 cm/sec TR max lobo: 293.6 cm/sec PA V2 mean: 71.0 cm/sec TR max P.5 mmHg ECHO/Echo Complete W/ Contrast Interpretation Summary The left ventricular ejection fraction is 65 %. Unable to assess diastolic dysfunction due to arrhythmia. There is severe biatrial dilatation. Mild (1+) mitral valve insufficiency. Moderate to severe tricuspid valve regurgitation. Estimated RVSP 50 mmHg. Aortic valve sclerosis without stenosis. Ordering Physician: Cady Aparicio Referring Physician: Rafiq Blanchard Performed By: Candice Lopez, ARMANDO, RVT
== END | disposition home or self-care (01) ==
LOC: CVS 09:39
PROVIDERS: PCP Family Medicine; Referring Provider Nurse Practitioner Gerontology; Visit Provider Nurse Practitioner Gerontology
DX: R06.09 Other forms of dyspnea (principal)
CPT/HCPCS: 93306; Q9957; A4216; C8929